=== PATIENT | female | born 1950 | race Caucasian/White ===

== ENCOUNTER 2018-11-19 10:21 | Emergency (ER) | payer MEDICARE, OTHER, SELFPAY ==
[2018-11-19 10:22] VITALS: BP 146/78; PULSE 105; RESP 16; TEMP 36.2; O2SAT 95; BMI 22.7
--- NOTE | 2018-11-19 10:55 | CT_ITS ---
STUDY: CT ABDOMEN AND PELVIS WITHOUT CONTRAST REASON FOR EXAM: Female, 68 years old. Right lower quadrant pain x2 days. RADIATION DOSAGE (If Supplied By Facility): CTDIvol = ( 6.90 ) mGy, DLP = ( 300.04 ) mGycm TECHNIQUE: Transaxial images were obtained from the dome of the diaphragm to the symphysis pubis without oral contrast, and without intravenous contrast. Sagittal and coronal images were reconstructed. Individualized dose optimization techniques were used for this CT. COMPARISON: April 06, 2015 FINDINGS: The visualized lung bases are unremarkable. The visualized portions of the heart are within normal limits. Stable calcifications in the liver. Stable right lobe cyst, otherwise unremarkable liver. There is non-visualization of the gallbladder, which may be secondary to either contraction or a prior cholecystectomy. There are multiple benign calcified granulomata of the spleen. There is diffuse atrophy of the pancreas. Normal bilateral adrenal glands. Normal right kidney. Normal left kidney. Slight increase in size in exophytic right renal cyst. Normal visualized stomach. Normal small intestine. There is an area of significant wall thickening and edema involving the ascending colon and transverse colon at the hepatic flexure. Findings are concerning for colitis. Appendix is not clearly visualized. There is diffuse atherosclerotic calcification of the abdominal aorta, without a demonstrated aneurysm. Normal inferior vena cava. Normal retroperitoneum. Normal urinary bladder. There is atrophy of the uterus. Normal abdominal wall. Normal osseous structures. CT/Abdomen/Pelvis without Cont IMPRESSION: Circumferential wall thickening with edema and pericolonic fat stranding involving the ascending colon and transverse colon at the hepatic flexure. Findings are suspicious for colitis. Nonvisualized appendix. Old granulomatous disease. Electronically Signed: West Vang DO at 12:05 EST Tel , Service support ,
[2018-11-19 11:08] LABS: Absolute Lymphocyte Count 2.43 X10^3/ul (0.83-4.51); Absolute Neutrophil Count 8.6 X10^3/uL (2.0-7.7); Basophil# 0.02 X10^3/uL; Basophil% 0.2 % (0-1); Eosinophil# 0.13 X10^3/uL; Eosinophils% 1.1 % (0-5); Hematocrit 41.6 % (37-47); Hemoglobin 13.6 g/dl (12.0-15.0); Lymphocyte # 2.43 X10^3/ul (4.0); Mean Corp Hgb Conc 32.7 g/gl (32-36); Mean Corpuscular Hgb 28.6 pg (27.0-32.0); Mean Corpuscular Volume 87.6 fL (81-99); Monocyte# 0.97 X10^3/uL; Neutrophil # 8.58 X10^3/uL (2.7-7.7); Neutrophil % 70.5 % (47-70); POSITIVE COUNT NO; POSITIVE DIFFERENTIAL NO; POSITIVE MORPHOLOGY NO; Platelet Count 233 K/mm3 (150-450); RBC Distribution Width CV 12.7 % (11.6-14.6); RBC Distribution Width SD 40.7 fl (35.1-43.9); Red Blood Count 4.75 M/mm3 (4.2-5.4); White Blood Count 12.2 K/mm3 (4.4-11.0)
[2018-11-19] MEDS: 0.9% Normal Saline 1,000 ML 250 ML IV (11:08)
[2018-11-19] MEDS: Ibuprofen 600 MG Tablet PO (11:11)
[2018-11-19 11:16] LABS: Anion Gap 7 (5-15); BUN 13 mg/dL (7-18); BUN/Creat Ratio 14.8 RATIO (10-20); Calcium,Total 8.9 mg/dL (8.5-10.1); Chloride 104 mmol/L (98-107); Creatinine, Serum 0.88 mg/dL (0.55-1.02); EST Glomerular Filtration Rate 69 mL/min (>60); Est Glom Filt Rate - Afr Amer 83 mL/min (>60); Estimated Creatinine Clearance 61.15 ml/min; Glucose 163 mg/dL (74-106); Potassium 4.1 mmol/L (3.5-5.1); Sodium Level 137 mmol/L (136-145)
[2018-11-19 11:20] LABS: Bacteria 0 SEEN /hpf (None Seen); Color, Urine Yellow (Yellow); Glucose, Dipstick Normal (Normal); Ketone-Dipstick Negative (Negative); Leukocyte Esterase-Dipstick 25 /ul (Negative); Mucous, Urine 0 SEEN /hpf (<or=2+); Nitrite-Dipstick Negative (Negative); Occult Blood-Urine Negative /ul (Negative); Protein-Dipstick Negative (Negative); Red Blood Cells-Urine 0 SEEN /hpf (0-5); Urine Bilirubin Dipstick Negative (Negative); Urine Clarity Clear (Clear); Urine Urobilinogen Normal (Normal); White Blood Cells 0 SEEN /hpf (0-5)
[2018-11-19 11:25] LABS: Squamous Epithelial Cells - UA 0-5 SEEN /hpf (5-10)
--- NOTE | 2018-11-19 11:25 | ED.VISSUMM ---
- ER Visit Summary Date of Service: 11/19/18 Chief Complaint: Right flank pain History of Present Illness: The patient is a 68 F presenting with right flank pain. She states this started suddenly yesterday. She has pain in the right lower quadrant. She denies nausea, vomiting, diarrhea. Denies constipation. Denies urinary complaints. She has a chronic cough. She denies fever. No history of kidney stones. Denies other complaints. History of appendectomy, cholecystectomy. Physical Examination: Vitals are stable. Patient is afebrile. Alert no acute distress. HEENT exam is unremarkable. Neck is supple. Lungs are clear and equal bilaterally. Heart is regular rate and rhythm. Abdomen is soft right lower quadrant tenderness, no rebound or guarding Back: Nontender Extremities are unremarkable. Skin is warm and dry. Remainder of exam is unremarkable. Emergency Department Course and Treatment: Patient declined morphine. She is given Zofran, Motrin. CBC shows white count 12.2. Chemistries normal except for glucose 163. Urinalysis unremarkable. CT abdomen pelvis shows circumferential wall thickening with edema and pericolonic fat stranding involving the ascending colon and transverse colon at the hepatic flexure. Findings are suspicious for colitis. On reevaluation, patient is resting comfortably. Her abdomen is soft and nontender with no rebound or guarding. She is given prescription for Cipro and Flagyl. She is advised to follow-up with her primary care physician. Advised return to ED for worsening complaints. Disposition: Discharge home Impression: Abdominal pain, colitis This note was generated with [employer] dictation software. It may contain incorrect words, spelling, and punctuation that were not noted in review of the chart prior to signing ED Disposition - Plan for ED Patient: Chief Complaint: Flank Pain Instructions: ED Abdominal Pain Unkn Cause Prescriptions: Metronidazole [Flagyl] 500 mg PO Q8H #21 tablet Ciprofloxacin [Cipro] 500 mg PO BID #14 tablet Referrals: Boo Christensen DO [Primary Care Provider] -
--- NOTE | 2018-11-19 13:19 | ED.DEP ---
ED Disposition - Plan for ED Patient: Chief Complaint: Flank Pain Instructions: ED Abdominal Pain Unkn Cause Prescriptions: Metronidazole [Flagyl] 500 mg PO Q8H #21 tablet Ciprofloxacin [Cipro] 500 mg PO BID #14 tablet Referrals: Boo Christensen DO [Primary Care Provider] -
[2018-11-19] MEDS: Ciprofloxacin 500 MG Tablet PO (13:39)
[2018-11-19] MEDS: metroNIDAZOLE 500 MG Tablet PO (13:40)
[2018-11-19 13:44] VITALS: BP 120/88; PULSE 76; RESP 16; O2SAT 96
--- NOTE | 2018-11-19 13:45 | ED.RN ---
REVIEWED D/C INSTRUCTIONS, FOLLOW UP CARE, PRESCRIPTIONS, AND S/S THAT WOULD WARRANT A RETURN TO THE ED WITH PT. PT VERBALIZED AN UNDERSTANDING AND DENIES FURTHER QUESTIONS FOR THIS RN. PT SKIN P/W/D, RESP EVEN AND UNLABORED, PT A&O X 3, NO DISTRESS NOTED. PT AMBULATED OUT OF ED, GAIT STEADY.
== END 2018-11-19 13:46 | disposition home or self-care (01) ==
LOC: ED 11:15
PROVIDERS: Emergency Provider Emergency Medicine; Family Provider Preventive Medicine Occupational Medicine; PCP Preventive Medicine Occupational Medicine
DX: K52.9 Noninfective gastroenteritis and colitis, unspecified (principal); Z90.49 Acquired absence of other specified parts of digestive tract; I10 Essential (primary) hypertension; J44.9 Chronic obstructive pulmonary disease, unspecified; Z79.82 Long term (current) use of aspirin; Z79.899 Other long term (current) drug therapy
CPT/HCPCS: 74176; 80048; 81001; 85025; 96360; 96361; 99283; J7030

== ENCOUNTER 2019-11-18 10:13 | Emergency (ER) | payer MEDICARE, OTHER, SELFPAY ==
[2019-11-18 10:14] VITALS: BP 124/66; PULSE 90; RESP 17; TEMP 36.8; O2SAT 94; BMI 23.3
--- NOTE | 2019-11-18 11:05 | RAD_ITS ---
STUDY: X-RAY CHEST REASON FOR EXAM: Female, 69 years old. Chest pain TECHNIQUE: Frontal and lateral views of the chest COMPARISON: None. FINDINGS: The lungs are hyperinflated, but clear. There are no pleural effusions. There is no pneumothorax. The heart is normal in size. The visualized osseous structures are within normal limits. RAD/Chest PA and Lateral IMPRESSION: No acute thoracic pathology. Electronically Signed: Stanislav Smith, at 11:19 EST Tel , Service support ,
--- NOTE | 2019-11-18 11:25 | ED.VISSUMM ---
- ER Visit Summary Date of Service: 11/18/19 Chief Complaint: Left lower chest pain History of Present Illness: The patient is a 69 F who presents with left lower chest pain that began yesterday. Patient states she has been having a cough for 2 weeks. Patient states that yesterday she felt like she was having pain in her left lateral chest. Patient states pain is worse with movement and with coughing. Patient states her pain feels like it is aching. Patient does not feel like this is cardiac related. Patient denies any sputum production with her cough. Patient admits to some mild shortness of breath at times. Patient states the pain does radiate along her ribs into her lower back. Patient admits to subjective chills. Patient states she went on a recent mission trip to the [facility] and was staying in a log cabin where it was very cold. Physical Examination: Vital signs are stable. Patient is afebrile. Patient is in no acute distress. Oral mucosa is pink and moist. Neck is supple. Trachea is midline. There is no JVD. Heart was regular rate and rhythm. Lungs are clear and equal bilaterally. There is adequate respiratory effort noted. There is tenderness along the left lateral ribs. There is no bony crepitance or step-off. Abdomen is soft. Bowel sounds are normal. There is no tenderness. Cranial nerves II through XII are intact. There are no focal motor or sensory deficits noted. Test Results: PA and lateral chest x-ray was obtained. There is no acute cardiopulmonary process. This was interpreted by the radiologist and myself. Emergency Department Course and Treatment: Patient was feeling better on reevaluation. Patient was instructed to take Tylenol or ibuprofen as needed for pain. Patient was instructed to use ice to the area. Patient was instructed to follow-up with her primary care physician in 5 to 7 days. Patient understood and was agreeable with the plan. All questions were answered. Disposition: Discharge home Impression: Left chest wall strain This note was generated with [employer] dictation software. It may contain incorrect words, spelling, and punctuation that were not noted in review of the chart prior to signing ED Disposition - Plan for ED Patient: Disposition: Home or Assisted Living Diagnosis: Strain of chest wall Instructions: Chest Wall Strain Referrals: Boo Christensen DO [Primary Care Provider] - 5-7 Days
== END 2019-11-18 11:57 | disposition home or self-care (01) ==
PROVIDERS: Emergency Provider Emergency Medicine; Family Provider Preventive Medicine Occupational Medicine; PCP Preventive Medicine Occupational Medicine
DX: S29.011A Strain of muscle and tendon of front wall of thorax, initial encounter (principal); J44.9 Chronic obstructive pulmonary disease, unspecified; I10 Essential (primary) hypertension; Z72.0 Tobacco use; X50.0XXA Overexertion from strenuous movement or load, initial encounter; Y93.89 Activity, other specified; Y92.89 Other specified places as the place of occurrence of the external cause; Y99.8 Other external cause status
CPT/HCPCS: 71046; 99282

== ENCOUNTER 2020-06-14 19:06 | Emergency (ER) | payer MEDICARE, OTHER, SELFPAY ==
[2020-06-14 19:08] VITALS: BP 121/78; PULSE 69; RESP 16; TEMP 36.2; O2SAT 98; BMI 23.8
--- NOTE | 2020-06-14 19:35 | EKG12_ITS ---
Test Reason : FEVER Blood Pressure : / mmHG Vent. Rate : 082 BPM Atrial Rate : 082 BPM P-R Int : 122 ms QRS Dur : 108 ms QT Int : 396 ms P-R-T Axes : 083 103 068 degrees QTc Int : 462 ms Normal sinus rhythm Incomplete right bundle branch block Possible Right ventricular hypertrophy Abnormal ECG Confirmed by MERARY LOGAN, FADUMO ([id number]), mapping editor JONNIE SANTOS ([id number]) on 06/17/2020 9:27:10 AM Referred By: ISIAH Confirmed By:FADUMO REAGAN MD
--- NOTE | 2020-06-14 19:35 | ED.VIS.GEN ---
History of Present Illness Chief Complaint: Fever Detail of Chief Complaint: Cough, right rib pain Informant: Patient Onset: Today Narrative: Patient developed URI symptoms last week. She does report a history of COPD. She took prednisone and Zithromax and did feel like her symptoms improved. Tonight she developed a fever of 101.8. She has had sharp pain in the right lower lateral ribs, worse with deep breath. 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 - Past Medical History (1) COPD (chronic obstructive pulmonary disease) Status: Chronic (2) Hypertension Status: Chronic (3) High cholesterol Status: Chronic Past Medical History - Allergies and Home Meds Allergies/Adverse Reactions: Allergies bupropion [From Wellbutrin] Allergy (Verified 06/14/20 19:08) Swelling Primary Care Physician: Boo Christensen DO [Primary Care Provider] - Smoking Status: Light Smoker (<10/day) Review of Systems General: Denies: Chills, Fever Eyes: Denies: Visual changes - bilaterally ENT: Denies: Bilateral ear pain Cardiovascular: Reports: Chest pain Respiratory: Reports: Dyspnea - Chest pain worse with deep breath, Cough Gastrointestinal: Denies: Abdominal pain, Nausea, Vomiting, Diarrhea Genitourinary: Denies: Dysuria Musculoskeletal: Denies: Extremity Pain Skin: Denies: Rash Neurological: Denies: Headache Hematologic: Denies: Easy bruising, Easy bleeding Allergy: Denies: Uticaria Physical Exam Vital Signs/Narrative: Vital Signs Temp Pulse Resp BP Pulse Ox 06/14/20 19:08 97.2 F L 69 16 121/78 H 98 Inital Vital Signs reviewed: Yes General: Well nourished, Well developed Head: Normocephalic ENT: Moist mucous membranes Neck: Supple Cardiovascular: Regular rate, Regular rhythm Respiratory: No distress, - - Scant wheezes. Abdomen: Soft, Nontender Extremities: Nontender Skin: Normal color Neurological: Alert, Oriented x3 Psychological: Normal affect Diagnostic/Tx/Re-eval Impressions Chest X-Ray 06/14/20 20:00 IMPRESSION: Mild patchy bilateral pulmonary opacities possible pneumonia. Atypical viral pneumonia cannot be excluded. Electronically Signed: Boo Huang, at 21:21 EDT Tel , Service support , Chest CTA 06/14/20 20:35 IMPRESSION: Multifocal segmental and subsegmental bilateral pulmonary emboli COPD changes with scattered pulmonary scarring 7 mm left upper lobe spiculated lesion suspicious for primary lung malignancy Multifocal groundglass pulmonary infiltrates, indeterminate possible pneumonia, atypical viral pneumonia cannot be excluded Scattered 2 and 3 mm pulmonary nodules indeterminate Stable hepatic and right renal cysts Acute to subacute right inferior anterolateral nondisplaced rib fractures Multilevel spondylosis thoracic and lumbar spine Faint densities within the trachea likely secretions Electronically Signed: Boo Huang, at 21:56 EDT Tel , Service support , 06/14/20 20:00 Chest 1 View (Portable) [RAD] Stat 06/14/20 20:35 CTA Chest W/WO Contrast [CT] Stat Laboratory Results 06/14/20 06/14/20 06/14/20 19:43 20:00 20:00 WBC 21.2 H RBC 4.91 Hgb 14.3 Hct 43.6 MCV 88.8 MCH 29.1 MCHC 32.8 RDW Std Deviation 40.4 RDW Coeff of Casa 12.5 Plt Count 271 MPV 10.5 Immature Gran % (Auto) 0.400 Neut % (Auto) 80.3 H Lymph % (Auto) 10.3 L Runnels % (Auto) 8.4 Eos % (Auto) 0.4 Baso % (Auto) 0.2 Absolute Neuts (auto) 17.0 H Absolute Lymphs (auto) 2.18 Nucleated RBC % 0 Differential Comment SCANNED D-Dimer Quant (PE/DVT) 2.00 H* Sodium Potassium Chloride Carbon Dioxide Anion Gap BUN Creatinine Estim Creat Clear Calc Est GFR (MDRD) Af Amer Est GFR (MDRD) Non-Af BUN/Creatinine Ratio Glucose Calcium Troponin I COVID-19 (LESLIE) Negative 06/14/20 20:00 WBC RBC Hgb Hct MCV MCH MCHC RDW Std Deviation RDW Coeff of Casa Plt Count MPV Immature Gran % (Auto) Neut % (Auto) Lymph % (Auto) Runnels % (Auto) Eos % (Auto) Baso % (Auto) Absolute Neuts (auto) Absolute Lymphs (auto) Nucleated RBC % Differential Comment D-Dimer Quant (PE/DVT) Sodium 135 L Potassium 4.3 Chloride 102 Carbon Dioxide 27.0 Anion Gap 6 BUN 15 Creatinine 0.88 Estim Creat Clear Calc 59.50 Est GFR (MDRD) Af Amer 83 Est GFR (MDRD) Non-Af 68 BUN/Creatinine Ratio 17.1 Glucose 122 H Calcium 9.0 Troponin I < 0.015 COVID-19 (LESLIE) - EKG Initial EKG Interpretation: Sinus Rhythm - Sinus at 82 with incomplete right bundle branch block. No acute ST change. - Medical Decision Making Patient is given dose of Solu-Medrol. Test results are discussed with the patient. She has multifocal bilateral PEs. There is a 7 mm left upper lobe spiculated lesion that is suspicious for malignancy. There is groundglass pulmonary infiltrates noted. There are also acute to subacute rib fractures noted in the area where patient is having pain. Patient is very adamant that she does not want stay in the hospital. Her O2 sat is 92% on room air. We will start her on Eliquis as well as Levaquin. She is referred to pulmonary for follow-up. She is given strict return instructions. ED Disposition - Plan for ED Patient: Disposition: Home or Assisted Living Diagnosis: Pulmonary emboli, Pneumonia, Rib fracture, Lung mass Instructions: Pulmonary Embolism, Rib Fracture (Broken Rib), Pneumonia Prescriptions: Apixaban [Eliquis] 5 mg PO BID #74 tab Transmission Status: Pending to [facility]/pharmacy #[id number] Levofloxacin [Levaquin] 750 mg PO DAILY #4 tab Transmission Status: Pending to [facility]/pharmacy #[id number] Referrals: Boo Christensen DO [Primary Care Provider] - Samuel Blount DO [STAFF PHYSICIAN] - As soon as possible
[2020-06-14] MEDS: MethylPREDNISolone 125 MG/2 ML Vial 80 MG IV (19:59)
[2020-06-14] MEDS: 0.9% Normal Saline 1,000 ML 150 ML IV (19:59)
--- NOTE | 2020-06-14 20:00 | RAD_ITS ---
STUDY: X-RAY CHEST REASON FOR EXAM: Female, 70 years old. PAIN UNDER RT AXILLARY. UPPER RESPIRATORY INFECTION LAST WEEK, COMPLETED Z PACK YESTERDAY, PREDNISONE TUESDAY. TEMP AT HOME 101.8 TECHNIQUE: Portable chest COMPARISON: 11/18/2019 FINDINGS: There are mild patchy bilateral pulmonary opacities. There is no demonstrated pleural abnormality. Normal size heart. Normal mediastinum and brian. Normal visualized pulmonary arteries. Normal visualized aortic arch and descending thoracic aorta. Normal visualized thoracic spine. Normal visualized ribs, clavicles, and shoulders. There is no demonstrated abnormality of the visualized soft tissue structures of the upper abdomen. RAD/Chest 1 View (Portable) IMPRESSION: Mild patchy bilateral pulmonary opacities possible pneumonia. Atypical viral pneumonia cannot be excluded. Electronically Signed: Boo Huang, at 21:21 EDT Tel , Service support ,
[2020-06-14 20:11] LABS: Absolute Lymphocyte Count 2.18 X10^3/uL (0.83-4.51); Basophil# 0.05 X10^3/uL; Basophil% 0.2 % (0-1); Eosinophil# 0.09 X10^3/uL; Eosinophils% 0.4 % (0-5); Hematocrit 43.6 % (37-47); Hemoglobin 14.3 g/dL (12.0-15.0); Lymphocyte # 2.18 X10^3/ul (4.0); Lymphocyte % 10.3 % (19-41); Mean Corp Hgb Conc 32.8 g/dL (32-36); Mean Corpuscular Hgb 29.1 pg (27.0-32.0); Mean Corpuscular Volume 88.8 fL (81-99); Mean Platelet Vol. 10.5 fl (6.2-12.0); Monocyte# 1.77 X10^3/uL; Monocyte% 8.4 % (0-10); NRBC Flagged by Analyzer 0 % (0-5); Neutrophil # 17.01 X10^3/uL (2.7-7.7); Neutrophil % 80.3 % (47-70); POSITIVE DIFFERENTIAL YES; POSITIVE MORPHOLOGY YES; Platelet Count 271 K/mm3 (150-450); RBC Distribution Width CV 12.5 % (11.6-14.6); RBC Distribution Width SD 40.4 fl (35.1-43.9); Red Blood Count 4.91 M/mm3 (4.2-5.4); White Blood Count 21.2 K/mm3 (4.4-11.0)
[2020-06-14 20:17] LABS: Differential Indicated SCAN CRITERIA MET
[2020-06-14 20:29] LABS: Anion Gap 6 (5-15); BUN 15 mg/dL (7-18); BUN/Creat Ratio 17.1 RATIO (10-20); Chloride 102 mmol/L (98-107); Creatinine, Serum 0.88 mg/dL (0.55-1.02); EST Glomerular Filtration Rate 68 mL/min (>60); Est Glom Filt Rate - Afr Amer 83 mL/min (>60); Glucose 122 mg/dL (74-106); Potassium 4.3 mmol/L (3.5-5.1); Sodium Level 135 mmol/L (136-145)
--- NOTE | 2020-06-14 20:35 | CT_ITS ---
STUDY: CTA CHEST REASON FOR EXAM: Female, 70 years old. PAIN UNDER RIGHT AXILLARY, INFECTION LAST WEEK ON ATB, ELEAVATED WBC, COVID PENDING, COUGH, SOB, FEVER RADIATION DOSAGE (If Supplied By Facility): CTDIvol = ( 6.51 ) mGy, DLP = ( 200.12 ) mGycm TECHNIQUE: The examination was performed with the intravenous administration of IV 75mL Isovue-370. Post-processing of the angiographic images was performed, with multiplanar reformation and 3D reconstruction. Individualized dose optimization techniques were used for this CT. COMPARISON: None. FINDINGS: There are diffuse COPD changes, scattered pulmonary scarring. There is 7 mm left upper lobe spiculated lesion. There are a few scattered bilateral 2 to 3 mm of pulmonary nodules. There is faint densities in the trachea likely secretions. There are multifocal bilateral segmental and subsegmental pulmonary arterial filling defects. There are scattered groundglass pulmonary opacities. There is biapical scarring There is stable 2 cm cyst within the upper pole the right kidney. There is stable 7 mm cyst right lobe of liver Normal thoracic aorta and visualized great vessels. There is no demonstrated aortic dissection. Normal heart and pericardium. Normal mediastinum. Normal hilar regions. Normal visualized trachea and bronchi. The lungs are well expanded. Right lower lobe calcified granuloma. Normal pleura. Normal chest wall structures. Normal osseous structures. Normal visualized upper abdomen. There is mild cortical deformity right anterior lateral ribs. There are significant multilevel degenerative changes thoracic and lumbar spine with multilevel disc osteophyte complexes, multilevel central canal stenoses CT/CTA Chest W/WO Contrast IMPRESSION: Multifocal segmental and subsegmental bilateral pulmonary emboli COPD changes with scattered pulmonary scarring 7 mm left upper lobe spiculated lesion suspicious for primary lung malignancy Multifocal groundglass pulmonary infiltrates, indeterminate possible pneumonia, atypical viral pneumonia cannot be excluded Scattered 2 and 3 mm pulmonary nodules indeterminate Stable hepatic and right renal cysts Acute to subacute right inferior anterolateral nondisplaced rib fractures Multilevel spondylosis thoracic and lumbar spine Faint densities within the trachea likely secretions Electronically Signed: Boo Huang, at 21:56 EDT Tel , Service support ,
[2020-06-14 20:38] LABS: Differential Comment SCANNED
[2020-06-14 21:09] VITALS: PULSE 87; RESP 22; O2SAT 95
[2020-06-14 21:16] LABS: Probe Check PASS; Specimen Processing Control PASS
[2020-06-14 21:51] VITALS: BP 103/67; PULSE 77; RESP 24; TEMP 36.2; O2SAT 91
[2020-06-14] MEDS: levoFLOXacin 750 MG Tablet PO (22:21)
[2020-06-14] MEDS: APIXABAN 5 MG TABLET 10 MG PO (22:21)
== END 2020-06-14 22:31 | disposition home or self-care (01) ==
PROVIDERS: Emergency Provider Emergency Medicine; PCP Preventive Medicine Occupational Medicine
DX: I26.99 Other pulmonary embolism without acute cor pulmonale (principal); J18.9 Pneumonia, unspecified organism; S22.31XA Fracture of one rib, right side, initial encounter for closed fracture; R91.8 Other nonspecific abnormal finding of lung field; F17.200 Nicotine dependence, unspecified, uncomplicated; J44.0 Chronic obstructive pulmonary disease with (acute) lower respiratory infection; I10 Essential (primary) hypertension; X58.XXXA Exposure to other specified factors, initial encounter; Z79.82 Long term (current) use of aspirin
CPT/HCPCS: 71045; 71275; 80048; 84484; 85025; 85379; 87635; 93005; 96361; 96374; 99285; G2023; J7030; Q9967; U0003

== ENCOUNTER 2020-06-26 16:23 | Inpatient (IN) | payer MEDICARE, OTHER, SELFPAY ==
[2020-06-17 06:33] VITALS: BMI 23.8
[2020-06-26 16:25] VITALS: BP 106/78; PULSE 93; RESP 20; TEMP 36.3; O2SAT 94; BMI 24.7
--- NOTE | 2020-06-26 16:47 | EKG12_ITS ---
Test Reason : AM EKG Blood Pressure : / mmHG Vent. Rate : 095 BPM Atrial Rate : 095 BPM P-R Int : 152 ms QRS Dur : 112 ms QT Int : 384 ms P-R-T Axes : 081 096 063 degrees QTc Int : 482 ms Normal sinus rhythm Normal ECG When compared with ECG of 26-JUN-2020 16:59, MANUAL COMPARISON REQUIRED, DATA IS UNCONFIRMED Confirmed by EMANUEL LOGAN, ALEXA ([id number]), make up editor CINDY JAMA ([id number]) on 06/30/2020 2:09:01 PM Referred By: PAUL Confirmed By:ELIZABETH CASTELLANOS MD
--- NOTE | 2020-06-26 16:49 | ED.DCSUM_ITS ---
- ER Visit Summary Date of Service: 06/26/20 Chief Complaint: Shortness of breath History of Present Illness: The patient is a 70 F presenting with shortness of breath. Patient states this has been ongoing for the past 2 weeks but has been progressively worsening. She was seen on June 14. At that time she was diagnosed with bilateral PE, pneumonia, subacute rib fracture, pulmonary lesion concerning for malignancy. She did not want to stay in the hospital at that time. She was started on Levaquin and Eliquis. She finished the course of Levaquin. She followed up with Dr. Blount and has outpatient testing scheduled. She complains of generalized weakness and dizziness. She denies syncope. She h as had intermittent chest pain. She tested negative for COVID 2 weeks ago. 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 She denies fever. Denies change in sense of taste or smell. Denies nausea or vomiting. She has had a productive cough. Denies other complaints. Physical Examination: Vitals are stable. Patient is afebrile. Alert no acute distress. HEENT exam is unremarkable. Neck is supple. Lungs are wheezing bilaterally. Heart is regular rate and rhythm. Abdomen is soft nontender nondistended. Extremities are unremarkable. Skin is warm and dry. No focal neurologic deficit. Remainder of exam is unremarkable. Emergency Department Course and Treatment: She was given albuterol/atrovent aerosols. Chest xray shows scattered calcified granulomas of both lungs. Left hilar calcified nodes. No acute cardiopulmonary disease process is seen. EKG is sinus rhythm rate of 76, similar to previous. CBC, chemistries unremark able. Troponin is negative. COVID is pending. Patient was given Solu-Medrol IV. She does not feel well enough to go home at this time and is agreeable to admission. Discussed with hospitalist for admission. Disposition: Admission Impression: COPD exacerbation This note was generated with [employer] dictation software. It may contain incorrect words, spelling, and punctuation that were not noted in review of the chart prior to signing ED Disposition - Plan for ED Patient: Referrals: Boo Christensen DO [Primary Care Provider] -
[2020-06-26] MEDS: Ipratropium/Albuterol Sulfate 3 ML AMPUL.NEB INHALATION (17:03)
[2020-06-26] MEDS: Albuterol 2.5 MG/3 ML VIAL.NEB. INHALATION ×3 (17:04→17:07)
[2020-06-26 17:05] VITALS: PULSE 80; RESP 20
--- NOTE | 2020-06-26 17:10 | RAD_ITS ---
STUDY: X-RAY CHEST REASON FOR EXAM: Female, 70 years old. PT RECENTLY DX WITH PNUEMONIA, BILATERAL PE, AND BROKEN RIBS. PT STATES STILL FEELING VERY FATIGUED, WEAK AND SOB TECHNIQUE: Single AP portable view of the chest. COMPARISON: Prior study of 06/14/2020 FINDINGS: There are scattered calcified granulomas throughout both lungs. There is no demonstrated pleural abnormality. Normal size heart. There are calcified left hilar nodes. Normal visualized pulmonary arteries. There are calcified plaques in the aortic arch. Normal visualized thoracic spine. Normal visualized ribs, clavicles, and shoulders. There is no demonstrated abnormality of the visualized soft tissue structures of the upper abdomen. RAD/Chest 1 View (Portable) IMPRESSION: Scattered calcified granulomas of both lungs. Left hilar calcified nodes. No acute cardiopulmonary disease process is seen. Electronically Signed: Brennen Lynn MD at 17:49 EDT , Service support ,
[2020-06-26 17:58] LABS: Absolute Lymphocyte Count 2.88 X10^3/uL (0.83-4.51); Absolute Neutrophil Count 3.5 X10^3/uL (2.0-7.7); Basophil# 0.07 X10^3/uL; Basophil% 0.9 % (0-1); Eosinophil# 0.73 X10^3/uL; Eosinophils% 9.2 % (0-5); Hematocrit 43.8 % (37-47); Lymphocyte # 2.88 X10^3/ul (4.0); Lymphocyte % 36.4 % (19-41); Mean Corpuscular Volume 90.9 fL (81-99); Mean Platelet Vol. 10.7 fl (6.2-12.0); Monocyte# 0.72 X10^3/uL; Monocyte% 9.1 % (0-10); NRBC Flagged by Analyzer 0 % (0-5); Neutrophil # 3.49 X10^3/uL (2.7-7.7); Neutrophil % 44.1 % (47-70); Platelet Count 250 K/mm3 (150-450); RBC Distribution Width CV 12.5 % (11.6-14.6); RBC Distribution Width SD 41.6 fl (35.1-43.9); Red Blood Count 4.82 M/mm3 (4.2-5.4); White Blood Count 7.9 K/mm3 (4.4-11.0)
[2020-06-26 18:22] LABS: Anion Gap 1 (5-15); BUN 15 mg/dL (7-18); BUN/Creat Ratio 17.2 RATIO (10-20); Calcium,Total 8.9 mg/dL (8.5-10.1); Chloride 105 mmol/L (98-107); Creatinine, Serum 0.87 mg/dL (0.55-1.02); EST Glomerular Filtration Rate 68 mL/min (>60); Est Glom Filt Rate - Afr Amer 83 mL/min (>60); Estimated Creatinine Clearance 57.94 ml/min; Glucose 104 mg/dL (74-106); Potassium 4.6 mmol/L (3.5-5.1); Sodium Level 140 mmol/L (136-145)
[2020-06-26 18:24] LABS: Procalcitonin < 0.01 ng/mL (0.00-0.09)
--- NOTE | 2020-06-26 18:32 | PCM.HP.STD ---
Problem List (1) COPD exacerbation Status: Acute (2) Suspected 2019 novel coronavirus infection Status: Chronic (3) Bilateral pulmonary embolism Status: Chronic (4) Anxiety and depression Status: Chronic (5) Hx SBO Status: Chronic (6) Tobacco use Status: Chronic (7) COPD (chronic obstructive pulmonary disease) Status: Chronic Qualifiers: COPD type: unspecified COPD Qualified Code(s): J44.9 - Chronic obstructive pulmonary disease, unspecified (8) HTN (hypertension) Status: Chronic Qualifiers: Hypertension type: essential hypertension Qualified Code(s): I10 - Essential (primary) hypertension History of Present Illness Date of Admission: 06/26/20 Chief Complaint: Dyspnea, Cough The patient is a 70 y/o F w/ PMHx: Chronic COPD, Hx SBO, Anxiety and Depression, Tobacco use, HTN, recent ED evaluation on 06/14/20 with decline to stay with diagnosed multifocal BL PEs, COPD changes and 7 mm AGUEDA spiculated lesions suspicion for malignancy and multifocal groundglass pulmonary infiltrates possibly COVID although tested negative at that ED visit with acute R inferior anteriolateral nondisplaced rib fractures secondary to coughing discharged on levaquin and eliqus therapy with follow-up with Pulmonary on 06/17/[address] chest noncontrast in 3 months for lung mass/nodules with planned PFTs and walking testing. The patient now re-presents to the [facility] ED on 06/26/20 with worsening shortness of breath more pronounced over the last 2 weeks with generalized weakness and dizziness with no syncope or near syncope episodes with intermittent pleuritic chest discomfort, worse with increased inspiratory effort with no recent fevers, chills, nausea, emesis, alteration to sense of taste or smell but reported productive cough of clear sputum. Work-up in the ED included T 97.3, heart rate 93, BP 106/78, respiratory rate 20, 94% on room air, CBC with WBC 7.9, hemoglobin 14, platelet 250 with no significant left shift, procalcitonin <0.01, BMP with CO2 34 otherwise unremarkable, troponin < 0.015, coronavirus repeat testing pending, chest x-ray with scattered calcified granulomatous in both lungs with left hilar calcified nodes with no acute cardiopulmonary findings. In the ED patient ministered albuterol and DuoNeb therapy. Past Medical History Past Medical History (Chronic Problems): Chronic Problems (Last Updated 06/17/20 @ 09:19 by Ryanne Joiner) Bilateral pulmonary embolism (Chronic) Suspected 2019 novel coronavirus infection (Chronic) Anxiety and depression (Chronic) Hx SBO (Chronic) Tobacco use (Chronic) HTN (hypertension) (Chronic) COPD (chronic obstructive pulmonary disease) (Chronic) Medical History: Medical History (Last Updated 06/17/20 @ 09:19 by Ryanne Joiner) History of small bowel obstruction Z87.19 COPD (chronic obstructive pulmonary disease) J44.9 Allergies bupropion [From Wellbutrin] Allergy (Verified 06/26/20 16:28) Swelling Home Medications: Ambulatory Orders Medication Instructions Recorded Aspirin [Aspirin, Baby] 81 mg PO DAILY@0800 12/23/16 Diltiazem CD [Cardizem CD] 180 mg PO DAILY 12/23/16 Albuterol Inhaler [Ventolin Hfa 1 puff INHALATION Q4H PRN PRN 06/14/20 (SP)] ALPRAZolam [Xanax] 0.5 mg PO TID 06/26/20 Apixaban [Eliquis] 5 mg PO BID 06/26/20 Surgical History: Surgical History (Last Updated 06/17/20 @ 09:19 by Ryanne Joiner) History of appendectomy Z90.49 History of delivery Z98.891 History of cholecystectomy Z90.49 Surgical History: - - Appendectomy, cholecystectomy, x3, intervention for small bowel obstruction. 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 Tobacco Use: Cigarettes Alcohol: None Drugs: None - *Family History Maternal Family History: Family History (Last Updated 06/17/20 @ 09:20 by Ryanne Joiner) Sister CVA (cerebral vascular accident) Diabetes Mother CVA (cerebral vascular accident) Diabetes History Items: Cancer, Diabetes, Hypertension, Stroke Paternal Family History: Family History (Last Updated 06/17/20 @ 09:20 by Ryanne Joiner) Sister CVA (cerebral vascular accident) Diabetes Mother CVA (cerebral vascular accident) Diabetes History Items: Cancer, Diabetes, Hypertension, Stroke Review of Systems Constitutional: Reports: Malaise, Weakness, Fatigue. Denies: Anorexia, Chills, Fever, Weight Change HEENT: Denies: Head Aches, Sinus Congestion, Sinus Drainage Cardiovascular: Reports: Chest Pain. Denies: Chest Pressure, Chest Tightness, Light Headedness, Orthopnea, Palpitations, Syncope Respiratory: Reports: Cough, Pleuritic Pain, Shortness of Breath, Shortness of breath at rest, Shortness of breath upon exertion. Denies: Sputum production Gastrointestinal: Denies: Abdominal Pain, Nausea, Vomiting Genitourinary: Denies: Dysuria Musculoskeletal: Reports: Back Pain, Joint Pain. Denies: Joint Tenderness Skin: Denies: Rash, Wounds Neurological: Denies: Numbness, Tingling, Focal weakness Psychiatric: Reports: Anxiety, Depression. Denies: Homicidal Ideations, Suicidal Ideations Hematologic/ Lymphatic: Denies: Easy Bruising, Easy Bleeding VTE Information - Inpt Only VTE Present on Admission: No VTE Mechan Device Prophylaxis: SCD's VTE Pharm Prophylaxis ordered?: No Reason prophylaxis not ordered:: Treatment Not Indicated - We will continue patient oral anticoagulant therapy for recent PE bilaterally. Patient Problems: Active and Suspected Problems (Last Updated 06/17/20 @ 09:19 by Ryanne Joiner) COPD exacerbation (Acute) Subjective: Seated upright in the ED bed, fatigued appearance, no obvious distress, occasional dry coughing. Objective: Physical Examination: General: awake, alert, oriented x 3 and cooperative, seated upright in the ED bed, fatigued appearance, occasional coughing. Skin: normal color, turgor, no icterus, cyanosis. HEENT: AT/NC, EOMI, PERRLA, moderately dry MM, no carotid bruits or JVD noted. Lungs: Diminished breath sounds throughout, greater bases, moderate effort, no obvious distress, dry coughing during exam, poor air movement, no current wheezing even. Heart: Regular rate and rhythm; no gallop, rub audible. Abdomen: soft, NTTP, ND, normal BS, no HSM. Extremities: no cyanosis, clubbing, or edema. Neurological: patient awake, alert, oriented x 3; cognitive function intact; pupils equally reactive to light and accomodation; cranial nerves II-XII grossly normal, moving all 4 extremities, no focal deficits, strength moderately to severely global decrease secondary to acute presentation. Psychiatric: affect appears fatigued otherwise normal, no acute evidence of depressive or anxiety feelings. - Physical Exam Vitals/I&O's: Vital Signs Temp Pulse Resp BP Pulse Ox 97.3 F L 80 20 H 106/78 94 06/26/20 16:25 06/26/20 17:05 06/26/20 17:05 06/26/20 16:25 06/26/20 16:25 Oxygen Delivery Method Room Air Weight: 153 lb Body Mass Index (BMI) 24.7 Laboratory Results 06/26/20 17:00: COVID-19 (LESLIE) Pending 06/26/20 17:30: WBC 7.9, RBC 4.82, Hgb 14.0, Hct 43.8, MCV 90.9, MCH 29.0, MCHC 32.0, RDW Std Deviation 41.6, RDW Coeff of Casa 12.5, Plt Count 250, MPV 10.7, Immature Gran % (Auto) 0.300, Neut % (Auto) 44.1 L, Lymph % (Auto) 36.4, Moody % (Auto) 9.1, Eos % (Auto) 9.2 H, Baso % (Auto) 0.9, Absolute Neuts (auto) 3.5, Absolute Lymphs (auto) 2.88, Nucleated RBC % 0 06/26/20 17:30: Sodium 140, Potassium 4.6, Chloride 105, Carbon Dioxide 34.0 H, Anion Gap 1 L, BUN 15, Creatinine 0.87, Estim Creat Clear Calc 57.94, Est GFR (MDRD) Af Amer 83, Est GFR (MDRD) Non-Af 68, BUN/Creatinine Ratio 17.2, Glucose 104, Calcium 8.9, Troponin I < 0.015 06/26/20 17:30: Procalcitonin < 0.01 Assessment/Plan All Active Problems (Last Updated 06/17/20 @ 09:19 by Ryanne Joiner) COPD exacerbation (Acute) The patient is a 70 y/o F w/ PMHx: Chronic COPD, Hx SBO, Anxiety and Depression, Tobacco use, HTN, recent ED evaluation on 06/14/20 with decline to stay with diagnosed multifocal BL PEs, COPD changes and 7 mm AGUEDA spiculated lesions suspicion for malignancy and multifocal groundglass pulmonary infiltrates possibly COVID although tested negative at that ED visit with acute R inferior anteriolateral nondisplaced rib fractures secondary to coughing discharged on levaquin and eliqus therapy, now re-presents to the [facility] ED on 06/26/20 with worsening shortness of breath. 1. Dyspnea, Cough, worsening with Recently Diagnosed Bilateral Pneumonia and Acute BL PE with coagulopathy suspected secondary to Acute Viral Syndrome, COVID-19 despite COVID negative test and Acute on Chronic COPD exacerbation: Will admit to the COVID unit given worsened symptoms, will maintain on oxygen with wean as tolerated to room air with planned oxygenation trial with activity prior to any discharge plan, maintain on IV Solu-Medrol but if coving testing returns positive may consider transition to IV Decadron, continue ATC duoneb, PRN albuterol, recently treated with levaquin thus will defer abx therapy especially given pro calcitonin returned unremarkable,, continue anticoagulant oral therapy, HOB, IS parameters, obtain CRP, CPK, Ferritin, LDH, Alk phos/AST/ALT, EKG, cycle cardiac enzymes, obtain ECHO given PE history, continue supportive care. 2. Incidental Pulmonary Nodules: Recent ED CTPA with 7 mm AGUEDA spiculated lesions suspicion for malignancy and other smaller nodules. Pulmonary evaluation 06/17/[address] chest noncontrast in 3 months for lung mass/nodules with planned PFTs and walking testing. 3. Incidental R inferior anteriolateral nondisplaced rib fractures: None on CT chest with prior ED presentation, likely secondary to severity of coughing, will continue PRN pain regimen. 4. Hypertension: Continue home regimen including diltiazem, PRN hydralazine. 5. Anxiety and depression: We will continue patient home Xanax regimen. 6. Tobacco Abuse: Encouraged cessation, inpatient consultation per RT, NR if desired. 7. DVT prophylaxis: SCDs, continue oral apixaban regimen. 8. 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 Following discussions about the differences in these status, requested DNR-CCA, no intubation status. Advanced Care Planning Face to Face Time: 16 minutes. OBSV E&M: 00815 Initial observation care L3 Procedures: 36830 Advncd Care Plan 30 Min
[2020-06-26] MEDS: MethylPREDNISolone 125 MG/2 ML Vial IV (19:03)
[2020-06-26 19:04] VITALS: BP 117/78; PULSE 86; RESP 20; TEMP 36.8; O2SAT 95
--- NOTE | 2020-06-26 19:38 | ED.RN ---
called report to saima ferguson rn icu.
--- NOTE | 2020-06-26 20:34 | ECHOD_ITS ---
Reason For Study: ARRHYTHMIA Procedure This was a 2D Doppler, Color Flow transthoracic echocardiogram. Exam performed portable in ICU/CCU. Left Ventricle Normal LV size. The estimated ejection fraction is 60 %. Unable to assess diastolic dysfunction. No regional wall motion abnormalities noted. Right Ventricle Normal RV size. Normal systolic function. Atria Normal left atrium. Normal right atrium. No doppler evidence for ASD. Mitral Valve There is moderate mitral annular calcification. There is no mitral valve stenosis. No mitral valve insufficiency. Tricuspid Valve There is no tricuspid stenosis. Unable to estimate RV systolic pressure due to inadequate jet, pulmonary artery pressure probably normal. No tricuspid valve insufficiency. Aortic Valve Trisinus/trileaflet aortic valve. There is no aortic stenosis. No aortic valve insufficiency. Pulmonic Valve There is no pulmonic valvular stenosis. No pulmonic valve insufficiency. Great Vessels Normal aortic root. Pericardium/Pleural No pericardial effusion. MMode/2D Measurements & Calculations LVIDd: 3.9 cm IVSd: 1.1 cm Ao root diam: 3.0 cm LVIDs: 2.5 cm LVPWd: 1.2 cm RVDd: 3.0 cm FS: 35.3 % LAV(MOD-bp): 39.3 ml LA A4 area: 13.2 cm2 LA dimension(2D): 3.7 cm LAV(MOD-bp) Indexed: 22.0 ml/m2 LAV(MOD-sp2): 44.1 ml LAV(MOD-sp4): 30.7 ml RA A4 area: 12.1 cm2 Time Measurements MV dec time: 0.13 sec Doppler Measurements & Calculations MV E max isiah: 85.8 cm/sec Lat Peak E' Isiah: 10.1 cm/sec Med Peak E' Isiah: 6.6 cm/sec MV A max isiah: 118.2 cm/sec E/E' lat: 8.5 E/E' med: 13.1 MV E/A: 0.73 Ao V2 max: 136.4 cm/sec LV V1 max: 128.2 cm/sec PA V2 max: 132.0 cm/sec Ao max P.4 mmHg LV V1 max P.6 mmHg Interpretation Summary The estimated ejection fraction is 60 %. Unable to assess diastolic dysfunction. Ordering Physician: Jeniffer Fletcher Referring Physician: Boo Christensen Performed By: Catherine Canela RDCS, RVT
[2020-06-26 20:43] VITALS: BMI 24.7; BMI 24.8
[2020-06-26 20:46] VITALS: BP 151/98; PULSE 76; RESP 18; TEMP 36.2; O2SAT 97
[2020-06-26 21:48] LABS: AST(SGOT) 25 U/L (15-37); Alanine Aminotransfer ALT/SGPT 18 U/L (13-56); Albumin, Serum 3.5 g/dL (3.2-5.0); Alkaline Phosphatase 164 U/L (45-117); Bilirubin, Direct 0.07 mg/dL (0.00-0.30); CRP 8.46 mg/L (0.0-3.0); Ferritin 75 ng/mL (8-252); Globulin 3.6 g/dL (2.2-4.2); LDH 258 U/L (84-246); Magnesium 2.1 mg/dL (1.6-2.6); Protein, Total 7.1 g/dL (6.4-8.2)
[2020-06-26] MEDS: 0.9% Normal Saline 1,000 ML 100 ML IV (22:32)
[2020-06-26] MEDS: ALPRAZolam 0.5 MG Tablet PO (22:35)
[2020-06-26] MEDS: APIXABAN 5 MG TABLET PO (22:35)
[2020-06-26] MEDS: Famotidine 20 MG Tablet PO (22:36)
[2020-06-26 23:09] VITALS: PULSE 93; RESP 18; O2SAT 97
[2020-06-26 23:10] VITALS: PULSE 80; RESP 18; O2SAT 95
[2020-06-27] VITALS (13 sets, daily range): BP systolic 98–134; BP diastolic 66–79; PULSE 81–107; RESP 16–22; TEMP 36.1–36.8; O2SAT 92–96
[2020-06-27 00:18] LABS: M R Staph aureus DNA By PCR Negative (Negative); Probe Check PASS; Specimen Processing Control PASS
--- NOTE | 2020-06-27 05:55 | EKG12_ITS ---
Test Reason : SOB Blood Pressure : / mmHG Vent. Rate : 076 BPM Atrial Rate : 076 BPM P-R Int : 150 ms QRS Dur : 108 ms QT Int : 398 ms P-R-T Axes : 088 101 067 degrees QTc Int : 447 ms Normal sinus rhythm Incomplete right bundle branch block Possible Right ventricular hypertrophy Abnormal ECG Confirmed by MERARY LOGAN, FADUMO ([id number]), dictionary editor OJNNIE SANTOS ([id number]) on 07/01/2020 9:24:25 AM Referred By: LEOPOLDO Confirmed By:FADUMO REAGAN MD
[2020-06-27] MEDS: ALPRAZolam 0.5 MG Tablet PO ×3 (05:58→22:13)
[2020-06-27] MEDS: Ipratropium/Albuterol Sulfate 3 ML AMPUL.NEB INHALATION ×4 (07:04→19:17)
[2020-06-27] MEDS: 0.9% Normal Saline 1,000 ML 100 ML IV (09:00)
[2020-06-27 10:54] LABS: Absolute Lymphocyte Count 0.79 X10^3/uL (0.83-4.51); Basophil# 0.02 X10^3/uL; Basophil% 0.1 % (0-1); Hematocrit 40.4 % (37-47); Hemoglobin 13.1 g/dL (12.0-15.0); Lymphocyte # 0.79 X10^3/ul (4.0); Lymphocyte % 4.4 % (19-41); Mean Corp Hgb Conc 32.4 g/dL (32-36); Mean Corpuscular Hgb 29.3 pg (27.0-32.0); Mean Corpuscular Volume 90.4 fL (81-99); Mean Platelet Vol. 10.8 fl (6.2-12.0); Monocyte# 0.08 X10^3/uL; Monocyte% 0.4 % (0-10); NRBC Flagged by Analyzer 0 % (0-5); Neutrophil # 16.98 X10^3/uL (2.7-7.7); Neutrophil % 94.7 % (47-70); Platelet Count 241 K/mm3 (150-450); RBC Distribution Width CV 12.5 % (11.6-14.6); RBC Distribution Width SD 41.2 fl (35.1-43.9); Red Blood Count 4.47 M/mm3 (4.2-5.4); White Blood Count 17.9 K/mm3 (4.4-11.0)
[2020-06-27] MEDS: Aspirin 81 MG TAB.CHEW PO (11:01)
[2020-06-27] MEDS: Famotidine 20 MG Tablet PO ×2 (11:01→22:13)
[2020-06-27 11:09] LABS: ALB/GLOB Ratio 0.9 RATIO (0.9-2.4); AST(SGOT) 17 U/L (15-37); Alanine Aminotransfer ALT/SGPT 14 U/L (13-56); Albumin, Serum 3.1 g/dL (3.2-5.0); Alkaline Phosphatase 148 U/L (45-117); Anion Gap 8 (5-15); BUN 14 mg/dL (7-18); BUN/Creat Ratio 14.7 RATIO (10-20); Calcium,Total 8.9 mg/dL (8.5-10.1); Chloride 109 mmol/L (98-107); Creatinine, Serum 0.95 mg/dL (0.55-1.02); EST Glomerular Filtration Rate 62 mL/min (>60); Est Glom Filt Rate - Afr Amer 75 mL/min (>60); Estimated Creatinine Clearance 53.06 ml/min; Globulin 3.4 g/dL (2.2-4.2); Glucose 242 mg/dL (74-106); Potassium 4.2 mmol/L (3.5-5.1); Protein, Total 6.5 g/dL (6.4-8.2); Sodium Level 140 mmol/L (136-145)
[2020-06-27] MEDS: APIXABAN 5 MG TABLET PO ×2 (11:12→22:13)
[2020-06-27] MEDS: dilTIAZem CD 180 MG Capsule PO (11:12)
--- NOTE | 2020-06-27 11:15 | CASEMGMT ---
RN CM SPIRAL GEAR GENERATOR CM to room to meet with patient for initial transition planning/care coordination assessment. RN ELIEL introduced self and role at [facility]. Pt voices understanding and consents to assessment at this time. Pt resting in bed in no distress at this time. Pt is A/O at this time and answers all questions appropriately. Care providers, pharmacy, and demographics verified/updated at this time. PCP: Dr Boo Christensen Specialists: Dr Blount--pulmonology Preferred Pharmacy: [facility] Insurance: [facility], [facility] Prescription Benefit: Yes Living Will/HPOA: Has both LW and Healthcare POA, who is her son, Huey Strauss. LNOK: Son, Huey/DORIS, daughter, Roxi Living Arrangements: Lives alone in apartment w/total of 8 steps to enter to get up into apartment. Denies difficulty w/stairs. Independent w/ADL's and IADL's. Transportation: Pt states drives self and states no transportation concerns at this time. Son will take her home @ discharge DME: Denies using any DME and denies needs. Does not have home O2. States if qualifies for O2 @ discharge, no preference of DME company. HHC/SNF: No history of either. Denies needs for HHC or OP therapy and no needs identified. Pt wishes to return home and states has no concerns with going home at time of discharge. Nursing to follow for home oxygen needs and any further discharge planning/needs. Pt voices no further concerns/needs at this time. Advised pt to ask for CM if any further questions/concerns/needs arise. Voices understanding. PLAN: Home May need Ambulatory pulse ox prior to discharge to determine if pt qualifies for Home O2. Rama FAM RN, CM
--- NOTE | 2020-06-27 16:17 | PN_ITS ---
Patient Problems: Active and Suspected Problems (Last Updated 06/17/20 @ 09:19 by Ryanne Joiner) COPD exacerbation (Acute) Subjective: Feeling much better today, denies any dyspnea or shortness of breath. She still has a slight nonproductive cough. Vitals/I&O's: Vital Signs Temp Pulse Resp BP Pulse Ox 98.0 F 81 19 H 111/69 94 06/27/20 11:00 06/27/20 16:09 06/27/20 16:09 06/27/20 11:00 06/27/20 11:00 Oxygen Delivery Method Room Air Weight: 153 lb 7.068 oz Body Mass Index (BMI) 24.7 Intake and Output for Last 24 Hours 06/25/20 06/26/20 06/27/20 23:59 23:59 23:59 Intake Total 200 / 200 1600 / 1600 Output Total 700 / 700 Balance 200 / 200 900 / 900 General: Alert, Oriented x3, Cooperative, No apparent distress HEENT: Atraumatic, PERRLA, EOMI, Normocephalic Oral: Moist Mucosa Neck: Supple, No JVD Lungs: Clear to auscultation, No rhonchi, No wheeze, No rales, Diminished, - - Poor air movement Cardiovascular: Regular rate, Regular Rhythm, Normal S1, Normal S2, No murmurs Abdomen: Soft, Non Tender, Non-Distended, No Hepato-splenomegaly Extremities: No edema, Capillary Refill Less than 3 Seconds Skin: No rashes, No breakdown Neurological: Neuro grossly intact, Sensory exam intact to light touch and pain Psych/Mental Status: Normal Affect, Appropriate Microbiology Past 72 Hours 06/26/20 23:05 Sputum, Expectorated/Coughed Gram Stain - Final 06/26/20 23:20 Mucosa - Nasopharyngeal Respiratory Panel (PCR) - Final 06/26/20 21:20 Urine, Clean Catch Streptococcus pneumoniae Antigen (M - Final 06/26/20 21:20 Urine, Clean Catch Legionella Antigen - Final Laboratory Results 06/26/20 17:00: COVID-19 (LESLIE) Negative 06/26/20 17:30: WBC 7.9, RBC 4.82, Hgb 14.0, Hct 43.8, MCV 90.9, MCH 29.0, MCHC 32.0, RDW Std Deviation 41.6, RDW Coeff of Casa 12.5, Plt Count 250, MPV 10.7, Immature Gran % (Auto) 0.300, Neut % (Auto) 44.1 L, Lymph % (Auto) 36.4, Cherry % (Auto) 9.1, Eos % (Auto) 9.2 H, Baso % (Auto) 0.9, Absolute Neuts (auto) 3.5, Absolute Lymphs (auto) 2.88, Nucleated RBC % 0 06/26/20 17:30: Sodium 140, Potassium 4.6, Chloride 105, Carbon Dioxide 34.0 H, Anion Gap 1 L, BUN 15, Creatinine 0.87, Estim Creat Clear Calc 57.94, Est GFR (MDRD) Af Amer 83, Est GFR (MDRD) Non-Af 68, BUN/Creatinine Ratio 17.2, Glucose 104, Calcium 8.9, Troponin I < 0.015 06/26/20 17:30: Procalcitonin < 0.01 06/26/20 17:30: Magnesium 2.1, Ferritin 75, Total Bilirubin 0.30, Direct Bilirubin 0.07, AST 25, ALT 18, Alkaline Phosphatase 164 H, Lactate Dehydrogenase 258 H, C-React Prot Ext Range 8.46 H, Total Protein 7.1, Albumin 3.5, Globulin 3.6 06/26/20 22:50: MRSA (PCR) Negative 06/26/20 23:00: Troponin I < 0.015 06/27/20 10:48: WBC 17.9 H, RBC 4.47, Hgb 13.1, Hct 40.4, MCV 90.4, MCH 29.3, MCHC 32.4, RDW Std Deviation 41.2, RDW Coeff of Casa 12.5, Plt Count 241, MPV 10.8, Immature Gran % (Auto) 0.400, Neut % (Auto) 94.7 H, Lymph % (Auto) 4.4 L, Cherry % (Auto) 0.4, Eos % (Auto) 0.0, Baso % (Auto) 0.1, Absolute Neuts (auto) 17.0 H, Absolute Lymphs (auto) 0.79 L, Nucleated RBC % 0 06/27/20 10:48: Sodium 140, Potassium 4.2, Chloride 109 H, Carbon Dioxide 23.0, Anion Gap 8, BUN 14, Creatinine 0.95, Estim Creat Clear Calc 53.06, Est GFR (MDRD) Af Amer 75, Est GFR (MDRD) Non-Af 62, BUN/Creatinine Ratio 14.7, Glucose 242 H, Calcium 8.9, Total Bilirubin 0.20, AST 17, ALT 14, Alkaline Phosphatase 148 H, Total Protein 6.5, Albumin 3.1 L, Globulin 3.4, Albumin/Globulin Ratio 0.9 Current Medications Acetaminophen (Tylenol) 650 mg PO Q6H PRN PRN PRN Reason: Pain Score 1-10/Temp > 100.7 F Al Hydroxide/Mg Hydroxide (Mylanta Ii) 30 ml PO Q6H PRN PRN PRN Reason: Gastric Burning Albuterol Sulfate (Ventolin Aerosols) 2.5 mg INHALATION Q2H PRN PRN PRN Reason: Dyspnea, wheezing Albuterol/Ipratropium (Duoneb) 3 ml INHALATION Q4HWA.RT [facility] Last Admin: 06/27/20 16:06 Dose: 3 ml Documented by: Alprazolam (Xanax) 0.5 mg PO TID [facility] Last Admin: 06/27/20 05:58 Dose: 0.5 mg Documented by: Apixaban (Eliquis) 5 mg PO BID [facility] Last Admin: 06/27/20 11:12 Dose: 5 mg Documented by: Aspirin (Aspirin, Baby) 81 mg PO DAILY@0800 [facility] Last Admin: 06/27/20 11:01 Dose: 81 mg Documented by: Dextrose (D50w Syringe) 0 gm IV X1 PRN; Protocol PRN Reason: Hypoglycemia Diltiazem HCl (Cardizem Cd) 180 mg PO DAILY [facility] Last Admin: 06/27/20 11:12 Dose: 180 mg Documented by: Famotidine (Pepcid) 20 mg PO BID [facility] Last Admin: 06/27/20 11:01 Dose: 20 mg Documented by: Glucagon () 1 mg IM .X1 PRN PRN Reason: Hypoglycemia Guaifenesin (Robitussin) 20 ml PO Q4H PRN PRN PRN Reason: COUGH Hydralazine HCl (Apresoline Iv) 10 mg IV Q4H PRN PRN PRN Reason: SBP > 160 Sodium Chloride () 1,000 mls @ 100 mls/hr IV .Q10H [facility] Last Admin: 06/27/20 09:00 Dose: 100 mls/hr Documented by: Magnesium Hydroxide (Milk Of Magnesia) 30 ml PO DAILY PRN PRN PRN Reason: Constipation Methylprednisolone (Solu-Medrol) 40 mg IV Q8 [facility] Last Admin: 06/27/20 05:58 Dose: 40 mg Documented by: Morphine Sulfate () 2 mg IV Q3H PRN PRN PRN Reason: Pain Score 6-10/10 Nicotine (Nicoderm Cq (Pbkc)) 14 mg TRANSDERM. DAILY [facility] Last Admin: 06/27/20 11:01 Dose: 14 mg Documented by: Nitroglycerin (Nitrostat) 0.4 mg SUBLINGUAL Q5M PRN PRN Reason: CARDIAC/CHEST PAIN Ondansetron HCl (Zofran) 4 mg IV Q8H PRN PRN PRN Reason: NAUSEA/VOMITING Oxycodone HCl (Oxyir) 5 mg PO Q4H PRN PRN PRN Reason: Pain Score 4-5/10 Prochlorperazine Edisylate (Compazine Iv) 5 mg IV Q4H PRN PRN PRN Reason: Breakthrough nausea/vomiting Psyllium Hydrophilic Mucilloid (Metamucil) 1 packet PO DAILY PRN PRN PRN Reason: Constipation Senna/Docusate Sodium (Senokot-S, Airam-Colace) 2 tablet PO BID PRN PRN PRN Reason: Constipation Sodium Chloride () 10 - 40 ml IV UD PRN PRN Reason: SALINE FLUSH Temazepam (Restoril) 15 mg PO QHS PRN PRN PRN Reason: INSOMNIA Throat Lozenges (Cepacol Sore Throat Lozenge) 1 lozenge MUCOUS MEM Q2H PRN PRN PRN Reason: SORE THROAT STROKE Vital Signs/Narrative: Vital Signs Pulse Resp 06/27/20 16:09 81 19 H Medical Necessity - Tobacco Use Smoking Status: Current every day smoker Tobacco Use: Cigarettes Assessment/Plan All Active Problems (Last Updated 06/17/20 @ 09:19 by Ryanne Joiner) COPD exacerbation (Acute) 1. COPD exacerbation/tobacco abuse/incidental pulmonary nodule/history of recent pulmonary embolism -She was recently admitted with pneumonia and bilateral PEs. She has continued complete her antibiotic course -She is currently on 5 mg of Eliquis p.o. twice daily -Continue with IV steroids for today, will transition to p.o. prednisone in the morning -No wheezes at this time and she is on room air oxygenating appropriately -She did test negative for COVID previously however will check for serum antibodies to see if this explains her worsening symptoms over the last couple of days -Continue with nicotine patch, encourage smoking cessation -She will need to follow-up with her pulmonary nodule in 3 months with a repeat CT scan, it was [address] the left upper lobe, previously that nodule had been 6 mm in [place] 2. HTN -Blood pressure is stable -We will continue with her home blood pressure medications 3. Anxiety -Stable -Continue on Xanax DVT: Eliquis Inpatient E&M: 60926 Subs Hosp L2
--- NOTE | 2020-06-27 17:35 | NURSING ---
Called lab regarding Covid antibody test. They said to cancel the order because they only run the tests in the am and not on weekends. They stated if we sent her blood down to be frozen they are unsure if the result would be accurate by Tuesday. The pt will most likely be d/c home tomorrow. I placed an order for the lab to be drawn Tuesday morning in case the pt is not d.c home.
[2020-06-27] MEDS: 0.9% Saline Lock 10 ML Syringe IV (22:06)
[2020-06-28] MEDS: 0.9% Saline Lock 10 ML Syringe IV (05:44)
[2020-06-28] MEDS: ALPRAZolam 0.5 MG Tablet PO (05:44)
[2020-06-28 05:55] VITALS: BP 111/69; PULSE 83; RESP 18; TEMP 36.3; O2SAT 97
[2020-06-28 07:00] VITALS: PULSE 88; RESP 18; O2SAT 98
[2020-06-28] MEDS: Ipratropium/Albuterol Sulfate 3 ML AMPUL.NEB INHALATION (07:00)
[2020-06-28] MEDS: predniSONE 20 MG Tablet 40 MG PO (09:11)
[2020-06-28] MEDS: APIXABAN 5 MG TABLET PO (09:18)
[2020-06-28] MEDS: dilTIAZem CD 180 MG Capsule PO (09:18)
[2020-06-28] MEDS: Famotidine 20 MG Tablet PO (09:18)
[2020-06-28] MEDS: Aspirin 81 MG TAB.CHEW PO (09:18)
--- NOTE | 2020-06-28 10:32 | DCINST_ITS ---
- Discharge Diagnoses Current Active Problems: Current Active and Chronic Problems (Last Updated 06/17/20 @ 09:19 by Ryanne Joiner) Bilateral pulmonary embolism (Chronic) Suspected 2019 novel coronavirus infection (Chronic) COPD exacerbation (Acute) Anxiety and depression (Chronic) Hx SBO (Chronic) Tobacco use (Chronic) HTN (hypertension) (Chronic) You will use the following diet at home:: Regular Your food should be the consistency of: Regular Your liquids should be the consistency of: Regular/Thin Discharge Activity: Return to Normal Activity Call your doctor if you observe: Fever of 101 or Higher, Shortness of breath, Dizziness, Fainting spells, Swelling in the ankles, Chest pain, Increased palpitations (irregular heartbeat) Allergies/Adverse Reactions: Allergies bupropion [From Wellbutrin] Allergy (Verified 06/26/20 16:28) Swelling Medications to take at Discharge Aspirin [Aspirin, Baby] 81 mg PO DAILY@0800 12/23/16 Diltiazem CD [Cardizem CD] 180 mg PO DAILY 12/23/16 Albuterol Inhaler [Ventolin Hfa] 1 puff INHALATION Q4H PRN PRN 06/14/20 ALPRAZolam [Xanax] 0.5 mg PO TID 06/26/20 Apixaban [Eliquis] 5 mg PO BID 06/26/20 predniSONE tablet 40 mg PO DAILY@0800 #14 tab 06/28/20 The following prescriptions were given: predniSONE tablet 40 mg PO DAILY@0800 #14 tab Transmission Status: Received by [facility] Primary Care Physician: Boo Christensen DO [Primary Care Provider] - Please follow up with your Primary Care Physician in: 3-5 days Test Results: Test results from this visit will be discussed in further detail at your follow- up appointment, if applicable.
--- NOTE | 2020-06-28 10:37 | PCM.DC.SUM ---
Discharge Date and Diagnosis - Problem List Patient Problems: Active and Suspected Problems (Last Updated 06/17/20 @ 09:19 by Ryanne Joiner) COPD exacerbation (Acute) Date of Admission: 06/26/20 Date of Discharge: 06/28/20 - Primary Discharge Diagnosis Acute Problems: Active Problems (Last Updated 06/17/20 @ 09:19 by Ryanne Joiner) COPD exacerbation (Acute) - Secondary Discharge Diagnosis Chronic Problems: Chronic Problems (Last Updated 06/17/20 @ 09:19 by Ryanne Joiner) Bilateral pulmonary embolism (Chronic) Suspected 2019 novel coronavirus infection (Chronic) Anxiety and depression (Chronic) Hx SBO (Chronic) Tobacco use (Chronic) HTN (hypertension) (Chronic) COPD (chronic obstructive pulmonary disease) (Chronic) Hospital Course and Treatment Imaging Results: CXR: IMPRESSION: Scattered calcified granulomas of both lungs. Left hilar calcified nodes. No acute cardiopulmonary disease process is seen. Echo: Interpretation Summary The estimated ejection fraction is 60 %. Unable to assess diastolic dysfunction. Consults: None Operations: None Procedures: 2-D Echocardiogram Summary of Care Provided: Per HPI: The patient is a 70 y/o F w/ PMHx: Chronic COPD, Hx SBO, Anxiety and Depression, Tobacco use, HTN, recent ED evaluation on 06/14/20 with decline to stay with diagnosed multifocal BL PEs, COPD changes and 7 mm AGUEDA spiculated lesions suspicion for malignancy and multifocal groundglass pulmonary infiltrates possibly COVID although tested negative at that ED visit with acute R inferior anteriolateral nondisplaced rib fractures secondary to coughing discharged on levaquin and eliqus therapy with follow-up with Pulmonary on 06/17/[address] chest noncontrast in 3 months for lung mass/nodules with planned PFTs and walking testing. The patient now re-presents to the [facility] ED on 06/26/20 with worsening shortness of breath more pronounced over the last 2 weeks with generalized weakness and dizziness with no syncope or near syncope episodes with intermittent pleuritic chest discomfort, worse with increased inspiratory effort with no recent fevers, chills, nausea, emesis, alteration to sense of taste or smell but reported productive cough of clear sputum. Work-up in the ED included T 97.3, heart rate 93, BP 106/78, respiratory rate 20, 94% on room air, CBC with WBC 7.9, hemoglobin 14, platelet 250 with no significant left shift, procalcitonin <0.01, BMP with CO2 34 otherwise unremarkable, troponin < 0.015, coronavirus repeat testing pending, chest x-ray with scattered calcified granulomatous in both lungs with left hilar calcified nodes with no acute cardiopulmonary findings. In the ED patient ministered albuterol and DuoNeb therapy. Hospital Course: 1. COPD exacerbation/tobacco abuse/incidental pulmonary nodule/history of recent pulmonary phezxces-77-dzht-old female with a history of tobacco abuse presents with cough and shortness of breath. She says that this is all resolved and she is feeling much better than when she came in. She is not sure if this was secondary to her anxiety about her pulmonary embolisms. She was continued to be on her Eliquis 5 mg p.o. twice daily. When she presented she was started on inhalers as well as steroids, she has improved significantly and has been on room air for the last 36 hours. She was transitioned to p.o. prednisone and will be discharged on 7 days of oral prednisone. She did test negative for COVID fairly recently however because of her continued issues with shortness of breath she did have serum antibodies drawn for further evaluation. She also was found on her previous admission to have a 7 mm nodule in her left upper lobe. She is aware of this and understands it when she moved to [place] she needs to have follow-up in July/August. She is also going to seriously attempt to quit smoking, she has had nicotine patches at home. I discussed with her the plan for discharge and she expressed understanding of the risks and benefits of going home today. 2. Hypertension, and anxiety all complicate her care and her home medications were evaluated and continued where appropriate. Patient Problems: Active and Suspected Problems (Last Updated 06/17/20 @ 09:19 by Ryanne Joiner) COPD exacerbation (Acute) - Physical Exam Vitals/I&O's: Vital Signs Temp Pulse Resp BP Pulse Ox 97.3 F L 88 18 111/69 98 06/28/20 05:55 06/28/20 07:00 06/28/20 07:00 06/28/20 05:55 06/28/20 07:00 Oxygen Delivery Method Room Air Weight: 153 lb 7.068 oz Body Mass Index (BMI) 24.7 Intake and Output for Last 24 Hours 06/26/20 06/27/20 06/28/20 23:59 23:59 23:59 Intake Total 200 / 200 2466.67 / 2466.67 700 / 700 Output Total 1200 / 1200 Balance 200 / 200 1266.67 / 1266.67 700 / 700 General: Alert, Oriented x3, Cooperative, No apparent distress HEENT: Atraumatic, PERRLA, EOMI, Normocephalic Oral: Moist Mucosa Neck: Supple, No JVD Lungs: Clear to auscultation, No rhonchi, No wheeze, No rales, Diminished, - -improved air movement Cardiovascular: Regular rate, Regular Rhythm, Normal S1, Normal S2, No murmurs Abdomen: Soft, Non Tender, Non-Distended, No Hepato-splenomegaly Extremities: No edema, Capillary Refill Less than 3 Seconds Skin: No rashes, No breakdown Neurological: Neuro grossly intact, Sensory exam intact to light touch and pain Psych/Mental Status: Normal Affect, Appropriate Microbiology Past 72 Hours 06/26/20 23:05 Sputum, Expectorated/Coughed Gram Stain - Final 06/26/20 23:05 Sputum, Expectorated/Coughed Respiratory Culture - Preliminary 06/26/20 23:20 Mucosa - Nasopharyngeal Respiratory Panel (PCR) - Final 06/26/20 21:20 Urine, Clean Catch Streptococcus pneumoniae Antigen (M - Final 06/26/20 21:20 Urine, Clean Catch Legionella Antigen - Final Laboratory Results 06/27/20 10:48: WBC 17.9 H, RBC 4.47, Hgb 13.1, Hct 40.4, MCV 90.4, MCH 29.3, MCHC 32.4, RDW Std Deviation 41.2, RDW Coeff of Casa 12.5, Plt Count 241, MPV 10.8, Immature Gran % (Auto) 0.400, Neut % (Auto) 94.7 H, Lymph % (Auto) 4.4 L, Lyman % (Auto) 0.4, Eos % (Auto) 0.0, Baso % (Auto) 0.1, Absolute Neuts (auto) 17.0 H, Absolute Lymphs (auto) 0.79 L, Nucleated RBC % 0 06/27/20 10:48: Sodium 140, Potassium 4.2, Chloride 109 H, Carbon Dioxide 23.0, Anion Gap 8, BUN 14, Creatinine 0.95, Estim Creat Clear Calc 53.06, Est GFR (MDRD) Af Amer 75, Est GFR (MDRD) Non-Af 62, BUN/Creatinine Ratio 14.7, Glucose 242 H, Calcium 8.9, Total Bilirubin 0.20, AST 17, ALT 14, Alkaline Phosphatase 148 H, Total Protein 6.5, Albumin 3.1 L, Globulin 3.4, Albumin/Globulin Ratio 0.9 Current Medications Acetaminophen (Tylenol) 650 mg PO Q6H PRN PRN PRN Reason: Pain Score 1-10/Temp > 100.7 F Al Hydroxide/Mg Hydroxide (Mylanta Ii) 30 ml PO Q6H PRN PRN PRN Reason: Gastric Burning Albuterol Sulfate (Ventolin Aerosols) 2.5 mg INHALATION Q2H PRN PRN PRN Reason: Dyspnea, wheezing Albuterol/Ipratropium (Duoneb) 3 ml INHALATION Q4HWA.RT [facility] Last Admin: 06/28/20 07:00 Dose: 3 ml Documented by: Alprazolam (Xanax) 0.5 mg PO TID [facility] Last Admin: 06/28/20 05:44 Dose: 0.5 mg Documented by: Apixaban (Eliquis) 5 mg PO BID [facility] Last Admin: 06/28/20 09:18 Dose: 5 mg Documented by: Aspirin (Aspirin, Baby) 81 mg PO DAILY@0800 [facility] Last Admin: 06/28/20 09:18 Dose: 81 mg Documented by: Dextrose (D50w Syringe) 0 gm IV X1 PRN; Protocol PRN Reason: Hypoglycemia Diltiazem HCl (Cardizem Cd) 180 mg PO DAILY [facility] Last Admin: 06/28/20 09:18 Dose: 180 mg Documented by: Famotidine (Pepcid) 20 mg PO BID [facility] Last Admin: 06/28/20 09:18 Dose: 20 mg Documented by: Glucagon () 1 mg IM .X1 PRN PRN Reason: Hypoglycemia Guaifenesin (Robitussin) 20 ml PO Q4H PRN PRN PRN Reason: COUGH Hydralazine HCl (Apresoline Iv) 10 mg IV Q4H PRN PRN PRN Reason: SBP > 160 Magnesium Hydroxide (Milk Of Magnesia) 30 ml PO DAILY PRN PRN PRN Reason: Constipation Morphine Sulfate () 2 mg IV Q3H PRN PRN PRN Reason: Pain Score 6-10/10 Nicotine (Nicoderm Cq (Pbkc)) 14 mg TRANSDERM. DAILY [facility] Last Admin: 06/28/20 09:18 Dose: 14 mg Documented by: Nitroglycerin (Nitrostat) 0.4 mg SUBLINGUAL Q5M PRN PRN Reason: CARDIAC/CHEST PAIN Ondansetron HCl (Zofran) 4 mg IV Q8H PRN PRN PRN Reason: NAUSEA/VOMITING Oxycodone HCl (Oxyir) 5 mg PO Q4H PRN PRN PRN Reason: Pain Score 4-5/10 Prednisone () 40 mg PO DAILY@0800 [facility] Last Admin: 06/28/20 09:11 Dose: 40 mg Documented by: Prochlorperazine Edisylate (Compazine Iv) 5 mg IV Q4H PRN PRN PRN Reason: Breakthrough nausea/vomiting Psyllium Hydrophilic Mucilloid (Metamucil) 1 packet PO DAILY PRN PRN PRN Reason: Constipation Senna/Docusate Sodium (Senokot-S, Airam-Colace) 2 tablet PO BID PRN PRN PRN Reason: Constipation Sodium Chloride () 10 - 40 ml IV UD PRN PRN Reason: SALINE FLUSH Last Admin: 06/28/20 05:44 Dose: 10 ml Documented by: Temazepam (Restoril) 15 mg PO QHS PRN PRN PRN Reason: INSOMNIA Throat Lozenges (Cepacol Sore Throat Lozenge) 1 lozenge MUCOUS MEM Q2H PRN PRN PRN Reason: SORE THROAT Discharge Activity: Return to Normal Activity Call your doctor if you observe: Fever of 101 or Higher, Shortness of breath, Dizziness, Fainting spells, Swelling in the ankles, Chest pain, Increased palpitations (irregular heartbeat) Home Medications: Medications to take at Discharge Aspirin [Aspirin, Baby] 81 mg PO DAILY@0800 12/23/16 Diltiazem CD [Cardizem CD] 180 mg PO DAILY 12/23/16 Albuterol Inhaler [Ventolin Hfa] 1 puff INHALATION Q4H PRN PRN 06/14/20 ALPRAZolam [Xanax] 0.5 mg PO TID 06/26/20 Apixaban [Eliquis] 5 mg PO BID 06/26/20 predniSONE tablet 40 mg PO DAILY@0800 #14 tab 06/28/20 Following Prescriptions Were Given to Patient: predniSONE tablet 40 mg PO DAILY@0800 #14 tab Transmission Status: Received by [facility] Primary Care Physician: Boo Christensen DO [Primary Care Provider] - Please follow up with your Primary Care Physician in: 3-5 days Disposition: Home Minutes spent on discharge:: 35 Patient Condition:: Stable Medical Necessity - Tobacco Use Smoking Status: Current every day smoker Tobacco Use: Cigarettes Meaningful Use Info Meaningful Use Diagnoses (Choose all that apply): None applicable Inpatient E&M: 34102 [facility]
[2020-06-28 10:45] VITALS: BP 114/69; PULSE 85; RESP 18; TEMP 36.5; O2SAT 97
--- NOTE | 2020-06-30 15:26 | CASEMGMT ---
DIONICIO CM Discharge Follow-up Phone Call: KATHLEEN: Mendel Strata: 3 Call Date: 06/30/2020 Discharge Date: 06/28/2020 Time of Call: 1620 Admitting Diagnosis: COPD exac, recent PE's and Rt rib fx's. Follow-up call placed to pt. Pt states she has been doing well since discharge. States she obtained and is taking her medications as prescribed. Denied any questions regarding her discharge instructions. Pt states she ran numerous errands this AM to sign consents to transfer her medical records to [place] where she is going to move in the coming weeks with her daughter. No conversational dyspnea noted during the call. Pt states she has also been able to not smoke. Pt without questions or concerns, no needs identified. Melody Bergeron RN CM
== END 2020-06-28 11:09 | disposition home or self-care (01) | DRG 190 ==
LOC: ED 16:52 → ICU 06-27 07:04 → MS3 06-27 18:54
PROVIDERS: Admitting Provider Family Medicine; Emergency Provider Emergency Medicine; PCP Preventive Medicine Occupational Medicine; Visit Provider Family Medicine
DX: J44.1 Chronic obstructive pulmonary disease with (acute) exacerbation (principal); I26.99 Other pulmonary embolism without acute cor pulmonale; I10 Essential (primary) hypertension; F32.9 Major depressive disorder, single episode, unspecified; F41.9 Anxiety disorder, unspecified; F17.210 Nicotine dependence, cigarettes, uncomplicated; R91.8 Other nonspecific abnormal finding of lung field; Z87.01 Personal history of pneumonia (recurrent)
CPT/HCPCS: 71045; 80048; 80053; 80076; 82728; 83615; 83735; 84145; 84484; 85025; 86140; 87070; 87205; 87449; 87633; 87635; 87641; 93005; 93306; 94640; 99251; 99285; 99406; J7030; A4216; G0463; U0003

== ENCOUNTER → 2020-07-29 09:26 | Outpatient (CLI) | payer MEDICARE, OTHER, SELFPAY ==
[2020-06-17 06:33] VITALS: BMI 23.8
[2020-06-26 20:43] VITALS: BMI 24.7
--- NOTE | 2020-07-29 14:14 | PFTCOMP_ITS ---
COMPLETE PULMONARY FUNCTION TEST INTERPRETATION Brief HPI: Patient is a 70 year old female, currently under the care of Dr. Blount, who presents to [facility] for complete pulmonary function tests secondary to diagnosis of nicotine dependence. Respiratory therapist reports good effort and reproducible results. Interpretation: Forced expiration spirometry shows a moderate large airways obstructive ventilatory defect with an FEV1 of 67% predicted. There is a significant bronc hodilator response in FEV1 by strict ATS criteria. Spirograms are of good quality and plateau slowly, indicating slowly emptying areas of the lungs. The respiratory flow volume loop shows decreased expiratory flow rates at all lung volumes consistent with airway obstruction. Lung volumes by body plethysmography show an elevated total lung capacity at 6.92 L, 132% predicted. FRC and RV are elevated out of proportion. Lung volume measurements are consistent with hyperinflation and air-trapping. Diffusion capacity by carbon monoxide is decreased at 55% predicted. The airway resistance is elevated. No previous pulmonary function tests were available for review. Impression: Partially reversible moderate large airways obstructive ventilatory defect resulting in air trapping with hyperinflation and symmetric adduction diffusion capacity, and a pattern consistent with COPD/asthma overlap syndrome
== END ==
PROVIDERS: PCP Preventive Medicine Occupational Medicine; Referring Provider Internal Medicine Critical Care Medicine; Visit Provider Internal Medicine Critical Care Medicine
DX: F17.210 Nicotine dependence, cigarettes, uncomplicated (principal)
CPT/HCPCS: 94060; 94726; 94729

== ENCOUNTER → 2020-07-31 11:53 | Outpatient (CLI) | payer MEDICARE, OTHER, SELFPAY ==
[2020-06-17 06:33] VITALS: BMI 23.8
[2020-06-26 20:43] VITALS: BMI 24.7
[2020-07-31 12:30] VITALS: PULSE 103; PULSE 105; PULSE 106; PULSE 75; PULSE 82; O2SAT 89; O2SAT 90; O2SAT 91; O2SAT 93; O2SAT 96; O2SAT 97
--- NOTE | 2020-07-31 15:20 | WT_ITS ---
PSN 6 Minute Walk Test - 6 Minute Walk Test 6 Minute Walk Test: 6 Minute Walk Test PSN:6-Minute Walk Test Start: 07/31/20 12:52 Freq: Status: Active Protocol: [id number] Document 07/31/20 12:30 [facility] (Rec: 07/31/20 12:57 [facility] [id number]) 6 Minute Walk Test Date Performed 07/31/20 Time Performed 12:30 Height 5 ft Weight: 70.307 kg Weight in Pounds 155.[address]: Dr Blount Assistive device used: None Pre-test Oxygen Delivery Method Room Air Pulse Ox (%) 96 Pulse Rate (60-100 beats/min) 75 Dyspnea Timo Scale (0-10) 0 Exertion Timo Scale (6-20) 6 1st minute Oxygen Delivery Method Room Air Pulse Ox (%) 93 Pulse Rate (60-100 beats/min) 103 H 2nd minute Oxygen Delivery Method Room Air Pulse Ox (%) 90 Pulse Rate (60-100 beats/min) 105 H 3rd minute Oxygen Delivery Method Room Air Pulse Ox (%) 90 Pulse Rate (60-100 beats/min) 103 H 4th minute Oxygen Delivery Method Room Air Pulse Ox (%) 90 Pulse Rate (60-100 beats/min) 103 H 5th minute Oxygen Delivery Method Room Air Pulse Ox (%) 89 Pulse Rate (60-100 beats/min) 106 H 6th minute Oxygen Delivery Method Room Air Pulse Ox (%) 91 Pulse Rate (60-100 beats/min) 103 H Dyspnea Timo Scale (0-10) 0 Exertion Timo Scale (6-20) 11 Post-test Oxygen Delivery Method Room Air Pulse Ox (%) 97 Pulse Rate (60-100 beats/min) 82 Full Laps Walked 23 Partial Lap, Number of Tiles Walked 13 Total Distance Walked (ft) 1370 - Interpretation Interpretation: The patient was able to ambulate 1370 feet over the course of 6 minutes on room air with no assistive devices or breaks. The patient did experience significant desaturation from a baseline of 96% to as low as 89%. This was associated with a peak heart rate of 106 bpm. These findings are consistent with a respiratory limitation exercise tolerance. - Recommendations Recommendations: No supplemental oxygen is indicated at this time. However, patient will need to be followed closely given level of desaturation.
== END ==
PROVIDERS: PCP Preventive Medicine Occupational Medicine; Referring Provider Internal Medicine Critical Care Medicine; Visit Provider Internal Medicine Critical Care Medicine
DX: F17.210 Nicotine dependence, cigarettes, uncomplicated (principal)
CPT/HCPCS: 94618

== ENCOUNTER → 2020-08-14 06:37 | Outpatient (CLI) | payer MEDICARE, OTHER, SELFPAY ==
[2020-08-07 07:22] VITALS: BMI 24.3
--- NOTE | 2020-08-14 06:37 | CT_ITS ---
HISTORY: LUNG NODULE FOLLOW UP, HX BILAT PE, SMOKER X 40 YRS LESS THAN A PPD TECHNIQUE: Helically acquired images of the chest were obtained without IV contrast. Number of images including paperwork: 813. A radiation dose optimization technique was used for this scan. COMPARISON: 06/14/2020 FINDINGS: VASCULATURE: Vascular tortuosity. HEART/PERICARDIUM: Unremarkable. MEDIASTINUM: Unremarkable. ADENOPATHY: No pathologic appearing adenopathy. Calcified bilateral hilar and mediastinal nodes. THYROID: Unremarkable visualized portions. LUNG PARENCHYMA: Moderate emphysema. Mild peribronchial thickening. Spiculated nodule in the left upper lobe measuring 5 mm in average diameter on series 4 image 38 is unchanged with measurements to the same level and orientation. Stable 3 mm left lower lobe nodule series 4 image 50. A few small subpleural densities are also noted, similar to previous. Multiple calcified granulomata. PLEURAL SPACES: Unremarkable. UPPER ABDOMEN: Calcified granulomata in the liver and spleen. 2.6 cm right renal cyst for which no follow-up is warranted per consensus guidelines. OSSEOUS AND SOFT TISSUE STRUCTURES: No acute skeletal findings. Degenerative changes. DEVICES: None. CT/Chest without Contrast IMPRESSION: No gross change in speculated left upper lobe lung nodule in the short interval. Follow-up CT recommended in May 2021 per [employer] recommendations. Individualized dose optimization techniques were used for this CT. at 0763 Reported and signed by: Tonja Ahn MD Electronically Signed: Tonja Ahn MD at 7:26 EDT Tel , Service support ,
== END ==
PROVIDERS: PCP Preventive Medicine Occupational Medicine; Referring Provider Internal Medicine Critical Care Medicine; Visit Provider Internal Medicine Critical Care Medicine
DX: R91.1 Solitary pulmonary nodule (principal)
CPT/HCPCS: 71250

== ENCOUNTER 2021-03-02 08:56 | Emergency (ER) | payer MEDICARE, OTHER, SELFPAY ==
[2020-11-07 10:37] VITALS: BMI 25.3
[2021-03-02 08:56] VITALS: BMI 25.2
[2021-03-02 08:58] VITALS: BP 152/98; PULSE 90; RESP 16; TEMP 36; O2SAT 93
--- NOTE | 2021-03-02 09:11 | CT_ITS ---
STUDY: CT BRAIN WITHOUT CONTRAST REASON FOR EXAM: Female, 70 years old. Paresthesias RADIATION DOSAGE (If Supplied By Facility): CTDIvol = ( 44.99 ) mGy, DLP = ( 812.98 ) mGycm TECHNIQUE: Transaxial CT imaging of the brain was performed without administration of intravenous contrast material. Individualized dose optimization techniques were used for this CT. COMPARISON: No relevant priors. FINDINGS: Normal soft tissue structures. Normal calvarium. Normal size ventricles and extra-axial spaces for the patient''s age. There are areas of decreased attenuation within the white matter tracts of the supratentorial brain, consistent with microvascular disease changes. Normal basal ganglia and thalami. Normal brainstem. Normal cerebellum. There is no intracranial hemorrhage. There are no findings of an acute ischemic infarction. Normal visualized paranasal sinuses. CT/Brain/Head without Contrast IMPRESSION: Chronic involutional changes of the brain. No acute hemorrhage Electronically Signed: Nba Wilcox MD at 9:53 EDT , Service support ,
--- NOTE | 2021-03-02 09:13 | ED.VISSUMM ---
- ER Visit Summary Date of Service: 03/02/21 Chief Complaint: Numbness in feet History of Present Illness: The patient is a [address] Jackson. She reports that both feet have been tingling for approximately 1 month. She states that this seems to come and go. She reports that her right hand began tingling and her lips were numb this morning. She denies any weakness. No change in her vision. No vertigo. No headache. Patient is on Eliquis for a PE that was diagnosed in May 2020. She is concerned because she has a contusion to the right forearm that began yesterday. She does not remember hitting her arm on anything. On review of system patient reports she has had a cough forever that is productive white sputum. She denies any fever, chills, chest pain, shortness of breath, back pain, or other complaints. Physical Examination: Vitals: Stable. Afebrile. General: Well-nourished and well-developed. Head: Normocephalic atraumatic. Neck: Supple, no lymphadenopathy. No JVD. Nontender. Cardiovascular: Regular rate and rhythm. No murmurs. Respiratory: No respiratory distress. Clear to auscultation bilaterally. Abdominal: Soft, nontender, nondistended, normal bowel sounds. No guarding, rebound, or peritoneal signs. Back: Nontender. Extremities: Nontender, no edema. Skin: Contusion to the medial side of her right forearm that is nontender, no rash. Neurologic: Alert and oriented ?3. Cranial nerves II through XII are intact. Normal strength. Decreased sensation to light touch in a stocking distribution. Normal sensation otherwise. Psych: Normal affect. Test Results: CBC shows an H&H 15.3 and 47.2. Chem-7 is normal. LFTs show an alk phos of 188. INR is 1.2. PTT is 32.7. Clinical Impression(s) from Imaging Studies Brain CT 03/02/21 09:11 IMPRESSION: Chronic involutional changes of the brain. No acute hemorrhage Electronically Signed: Nba Wilcox MD at 9:53 EDT , Service support , Emergency Department Course and Treatment: Patient is resting comfortably. She was reassured. Treatment Plan: Patient will be discharged with instructions to follow-up with her primary care physician within 1 week for further evaluation of her paresthesias. Return to the emergency department for any worsening symptoms. Disposition: To home in improved and stable condition. Impression: 1. Paresthesias. 2. Coagulopathy on Eliquis. 3. Contusion right forearm. This note was generated with [employer] dictation software. It may contain incorrect words, spelling, and punctuation that were not noted in review of the chart prior to signing ED Disposition - Plan for ED Patient: Instructions: ED Paraesthesias Referrals: Boo Christensen DO [Primary Care Provider] - 1 Week
[2021-03-02 09:38] LABS: Absolute Lymphocyte Count 2.73 X10^3/uL (0.83-4.51); Absolute Neutrophil Count 3.9 X10^3/uL (2.0-7.7); Basophil# 0.05 X10^3/uL; Basophil% 0.6 % (0-1); Eosinophil# 0.27 X10^3/uL; Eosinophils% 3.5 % (0-5); Hematocrit 47.2 % (37-47); Hemoglobin 15.3 g/dL (12.0-15.0); Lymphocyte # 2.73 X10^3/ul (4.0); Lymphocyte % 35.1 % (19-41); Mean Corp Hgb Conc 32.4 g/dL (32-36); Mean Corpuscular Hgb 28.6 pg (27.0-32.0); Mean Corpuscular Volume 88.2 fL (81-99); Mean Platelet Vol. 11.1 fl (6.2-12.0); Monocyte# 0.77 X10^3/uL; Monocyte% 9.9 % (0-10); NRBC Flagged by Analyzer 0 % (0-5); Neutrophil # 3.93 X10^3/uL (2.7-7.7); Neutrophil % 50.6 % (47-70); Platelet Count 247 K/mm3 (150-450); RBC Distribution Width CV 12.4 % (11.6-14.6); RBC Distribution Width SD 40.1 fl (35.1-43.9); Red Blood Count 5.35 M/mm3 (4.2-5.4); White Blood Count 7.8 K/mm3 (4.4-11.0)
[2021-03-02 09:48] LABS: International Normalized Ratio 1.2; Partial Thromboplast Time 32.7 Seconds (24.1-36.2); Prothrombin Time (Protime)PT. 14.3 SECONDS (11.7-14.9)
[2021-03-02 09:58] LABS: ALB/GLOB Ratio 1.2 RATIO (0.9-2.4); AST(SGOT) 23 U/L (15-37); Alanine Aminotransfer ALT/SGPT 17 U/L (13-56); Albumin, Serum 3.8 g/dL (3.2-5.0); Alkaline Phosphatase 188 U/L (45-117); Anion Gap 3 (5-15); BUN 16 mg/dL (7-18); BUN/Creat Ratio 18.3 RATIO (10-20); Calcium,Total 9.5 mg/dL (8.5-10.1); Chloride 105 mmol/L (98-107); Creatinine, Serum 0.87 mg/dL (0.55-1.02); EST Glomerular Filtration Rate 69 mL/min (>60); Est Glom Filt Rate - Afr Amer 83 mL/min (>60); Estimated Creatinine Clearance 71.42 ml/min; Globulin 3.2 g/dL (2.2-4.2); Glucose 105 mg/dL (74-106); Potassium 4.3 mmol/L (3.5-5.1); Sodium Level 138 mmol/L (136-145)
[2021-03-02 10:42] VITALS: BP 138/87; PULSE 82; RESP 16; O2SAT 95
== END 2021-03-02 10:43 | disposition home or self-care (01) ==
LOC: ED 10:07
PROVIDERS: Emergency Provider Emergency Medicine; PCP Preventive Medicine Occupational Medicine
DX: R20.2 Paresthesia of skin (principal); D68.9 Coagulation defect, unspecified; S50.11XA Contusion of right forearm, initial encounter; F17.200 Nicotine dependence, unspecified, uncomplicated; J44.9 Chronic obstructive pulmonary disease, unspecified; Z79.02 Long term (current) use of antithrombotics/antiplatelets; X58.XXXA Exposure to other specified factors, initial encounter
CPT/HCPCS: 70450; 80053; 85025; 85610; 85730; 99284

== ENCOUNTER → 2021-06-11 07:53 | Outpatient (CLI) | payer MEDICARE, OTHER, SELFPAY ==
--- NOTE | 2021-06-11 07:54 | CT_ITS ---
STUDY: CT CHEST WITHOUT CONTRAST REASON FOR EXAM: Female, 71 years old. Spiculated nodules. 50 pack-year smoking history. RADIATION DOSAGE (If Supplied By Facility): CTDIvol = ( 8.32 ) mGy, DLP = ( 301.51 ) mGycm TECHNIQUE: Transaxial imaging was performed without the administration of intravenous contrast material. Multiplanar coronal and sagittal images were reformatted. Individualized dose optimization techniques were used for this CT. COMPARISON: Comparison is made with prior study dated 08/14/2020. FINDINGS: Stable bilateral calcified granulomas. Hyperinflation. Emphysematous changes slightly worse in the upper lobes. Stable 5 mm slightly irregular nodule in the posterior aspect of the left upper lobe as seen on axial image #43. Stable 3 mm nodule in the left lower lobe as seen on axial image #56. There is no demonstrated pleural abnormality. There are calcifications of the coronary arteries. There are multiple small lymph nodes within the mediastinum, which are normal in size and morphology most compatible with reactive lymph hyperplasia. Calcified bilateral hilar lymph nodes. Normal unenhanced pulmonary arteries. There is atherosclerotic calcification of the aortic arch . There are multi-level degenerative changes of the thoracic spine. Right renal cyst. Multiple calcified splenic granulomas. CT/Chest without Contrast IMPRESSION: Stable examination. Follow-up examination in 12 months is recommended. Electronically Signed: Thanh Freeman MD at 14:03 EDT , Service support ,
== END ==
PROVIDERS: PCP Preventive Medicine Occupational Medicine; Referring Provider Nurse Practitioner Acute Care; Visit Provider Nurse Practitioner Acute Care
DX: R91.8 Other nonspecific abnormal finding of lung field (principal)
CPT/HCPCS: 71250

== ENCOUNTER → 2022-06-21 | Outpatient (CLI) | payer MEDICARE, OTHER, SELFPAY ==
--- NOTE | 2022-06-21 12:14 | CT_ITS ---
STUDY: CT CHEST WITHOUT CONTRAST REASON FOR EXAM: Female, 72 years old. Lung Nodule RADIATION DOSAGE (If Supplied By Facility): CTDIvol = ( 7.39 ) mGy, DLP = ( 260.39 ) mGycm TECHNIQUE: Transaxial imaging was performed without the administration of intravenous contrast material. Multiplanar coronal and sagittal images were reformatted. Individualized dose optimization techniques were used for this CT. COMPARISON: Comparison is made with prior study dated 06/11/2021. FINDINGS: CHEST Small benign-appearing bilateral axillary lymph nodes. Calcified granuloma in the lingular segment of the left upper lobe. Diffuse emphysematous changes. Stable scarring in both upper lobes more prominent at the right lung apex. Stable 5 mm slightly irregular nodule in the posterior aspect of the left upper lobe as seen on axial image #40. Stable partially calcified nodule in the left lower lobe as seen on axial image #53. There is no demonstrated pleural abnormality. There are calcifications of the coronary arteries. There are multiple small lymph nodes within the mediastinum, which are normal in size and morphology most compatible with reactive lymph hyperplasia. Calcified lymph nodes in the region of the aortopulmonary window. Calcified right hilar lymph nodes. Normal unenhanced pulmonary arteries. Normal aorta arch and descending thoracic aorta. There are multi-level degenerative changes of the thoracic spine. Calcified splenic granulomas. 1.6 cm cyst in the posterior aspect of the left kidney. 2.6 cm cyst in the lateral aspect of the right kidney. CT/Chest without Contrast IMPRESSION: Stable examination. Follow-up examination in 12 months is recommended. Electronically Signed: Thanh Freeman MD at 13:38 EDT ,
== END | disposition home or self-care (01) ==
PROVIDERS: PCP Preventive Medicine Occupational Medicine; Referring Provider Internal Medicine Critical Care Medicine; Visit Provider Internal Medicine Critical Care Medicine
DX: R91.1 Solitary pulmonary nodule (principal)
CPT/HCPCS: 71250

== ENCOUNTER → 2023-06-29 | Outpatient (CLI) | payer MEDICARE, OTHER, SELFPAY ==
--- NOTE | 2023-06-29 12:14 | CT_ITS ---
STUDY: LOW DOSE CT LUNG CANCER SCREENING REASON FOR EXAM: Female, 73 years old. Tobacco Dependency. 1/2PPD X 52 YEARS. COPD RADIATION DOSAGE (If Supplied By Facility): CTDIvol = ( 1.59 ) mGy, DLP = ( 55.79 ) mGycm TECHNIQUE: No contrast was administered. Low dose technique was utilized (average mAS-38 and kVp 120). 1.25 mm axial source images with a slice interval of 1.25-mm were reconstructed in lung windows. 2.5 mm axial source images with a slice interval of 2.5-mm were reconstructed in lung windows. 5.0 mm axial source images with a slice interval of 5.0-mm were reconstructed in soft tissue windows. Nodule measured using lung windows on PACS and/or independent workstation with automated measurement of minimum and maximum diameter. Nodule measurement reported as average diameter rounded to the nearest whole number. Growth is defined as an increase ins size of greater than 1.5 mm. COMPARISON: CT of the chest dated June 21, 2022 FINDINGS: Total lung nodules (excluding granulomas): None. 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 This demonstrates one-year stability and now interval development of calcification. Densely calcified 1.33 cm granuloma in the posterior aspect of the right lower lobe redemonstrated. Multiple additional calcified granulomata are scattered throughout both lungs. No solid nodules or pulmonary masses are present. Emphysema: Moderate Endobronchial lesion: None Aorta: No aneurysmal dilatation. Maximum diameter is 3.76 cm. Pulmonary artery: Mediastinal nodes: Multiple calcified bilateral hilar lymph nodes are present. The lungs are normal. There is no demonstrated pleural abnormality. Normal heart size and pericardium. There are calcifications of the coronary arteries. Normal mediastinum. Normal unenhanced pulmonary arteries. Normal aorta arch and descending thoracic aorta. There are multi-level degenerative changes of the thoracic spine. No soft tissue windows of the upper abdomen were included and therefore this area cannot be evaluated on this study. CT/Low Dose CT Lung Screening IMPRESSION: 1. 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 This demonstrates one-year stability and now interval development of calcification. Densely calcified 1.33 cm granuloma in the posterior aspect of the right lower lobe redemonstrated. Multiple additional calcified granulomata are scattered throughout both lungs. No solid nodules or pulmonary masses are present. 2. Moderate cystic emphysematous changes of the lungs. 3. Lung-RADS category 2 - Continue annual screening with LDCT in 12 months. IMPORTANT NOTES FOR USE: ACR Lung-RADS Version 1.0 Assessment Categories Release Date: March 25, 2014 Category: Coded 0-4 bases on nodule(s) with highest degree of suspicion. Negative screen is defined as categories 1 and 2; a positive screen is defined as categories 3 and 4. Category 3 and 4A nodules that are unchanged on interval CT should be coded as category 2, and individuals returned to screening in 12 months. Category 4X: Category 3 or 4 nodules with additional imaging findings that increase the suspicion of lung cancer, such as spiculation, GGN that doubles in size in 1 year, enlarged lymph notes, etc. Category Modifiers: S (significant finding unrelated to lung cancer) and C (prior history of treated lung cancer) may be added to the 0-4 Lung-RADS Electronically Signed: David Zaragoza MD at 15:51 EDT Reading Location ID and State: [facility] / [place] , Service support ,
== END | disposition home or self-care (01) ==
LOC: CT 12:14
PROVIDERS: PCP Preventive Medicine Occupational Medicine; Referring Provider Internal Medicine Critical Care Medicine; Visit Provider Internal Medicine Critical Care Medicine
DX: Z12.2 Encounter for screening for malignant neoplasm of respiratory organs (principal); F17.210 Nicotine dependence, cigarettes, uncomplicated
CPT/HCPCS: 71271